=== PATIENT | male | born 1985 | race Caucasian/White ===

== ENCOUNTER 2023-03-31 19:12 | Emergency (ER) | payer BC, SELFPAY ==
[2023-03-31 19:15] VITALS: BP 151/98; PULSE 68; RESP 18; TEMP 36.5; O2SAT 99; BMI 27.3
[2023-03-31] MEDS: dexAMETHasone 10 MG/ML Vial PO.IVFORM (22:28)
--- NOTE | 2023-03-31 23:39 | EDS_ITS ---
HPI HPI - URI History of Present Illness Chief Complaint: Sore Throat Narrative Narrative: 38-year-old male presenting with sore throat which has had for about 16 days. He went to a quick clinic at the pharmacy and was told that he had sinusitis. The patient states he was placed on Augmentin and after his first dose of this he started to get a sore throat which is a little bit worse. He states he went to the urgent care here locally for a second opinion and they told him that he was likely having allergic reaction. They did test him for strep initially and it was negative at that initial minute clinic. He states that he tried to tell them that he just wanted to follow-up with his PCP, however he states that they had another employee come into the room and physically remove him and tell him he had to go to the ER for an allergic reaction. The patient denies any trouble swallowing or breathing. He does not have any rashes. He does not have any abdominal pain. He states that his pain is actually feeling a little bit better now. He states he previously had fevers over the couple of weeks before but is not having anything anymore. He states he is upset with the urgent care because they did not treat him for anything and they kept his co-pay. ROS ROS ED Constitutional Constitutional ED: Denies chills, fever(s) or sweats Eyes Eyes: Denies blurry vision or change in vision ENT ENT ED: Reports sore throat; Denies ear pain Cardiovascular Cardiovascular: Denies chest pain, palpitations or racing heartbeat Respiratory/Chest Respiratory/Chest: Denies cough, dyspnea or sputum Gastrointestinal Gastrointestinal: Denies abdominal pain, constipation, diarrhea, nausea or vomiting Genitourinary Genitourinary ED: Denies dysuria, hematuria or urinary frequency Musculoskeletal Musculoskeletal: Denies arthralgias, myalgias or neck pain Integumentary Denies abscess, Abrasions or rash Neurologic Neurologic: Denies headache(s), paresthesias or weakness Psychiatric Psychiatric: Denies anxiety, depression, suicidal ideation or suicidal thoughts Endocrine Endocrinology: Denies polydipsia or polyuria PFSH PFSH Medical History no medical history Home Medications lidocaine HCl 2 % mucosal solution (Lidocaine Viscous) 10 ml mucous membrane Q8H PRN pain #100 mL 03/31/23 [Rx Last Taken Unknown] Allergy/AdvReac Type Severity Reaction Status Date / Time No Known Allergies Allergy Verified 03/31/23 19:15 Social History Smoking Status: Never smoker EXAM Physical Exam Const Vital Signs: 03/31/23 19:15 Temperature 97.7 F L Temperature Source Temporal Pulse Rate 68 Respiratory Rate 18 Blood Pressure 151/98 H Blood Pressure Mean 115 Pulse Ox 99 Oxygen Delivery Method Room Air Positive well nourished General Appearance ED: NAD; Negative for pallor HEENT Reports moist mucous membranes normocephalic and atraumatic Throat: posterior oropharynx normal; Negative for posterior oropharynx abnormal Eyes PERRL Neck no lymphadenopathy and supple Resp normal respiratory effort and clear to auscultation bilaterally Neuro oriented x3 and CN's II-XII intact bilaterally Sensorium / Orientation: alert Psych mental status grossly normal Skin General Skin Exam: Negative for jaundice or pallor MDM MDM MDM Narrative Medical decision making narrative: Patient presenting with sore throat. On physical exam his oropharynx is patent without stridor. There is minimal posterior oropharyngeal erythema there. There is no exudates. Tonsils not swollen. No stridor or trouble breathing or swallowing. Patient keeps telling me he is upset that the urgent care took his co-pay and did not treat him and I recommended that he follow-up with protocol for their office because I cannot change this. I did state to him that I do not think he has an allergic reaction and his sore throat is likely postviral since he had a fever previously. I did give him a dose of Decadron here. I will give him some viscous lidocaine to gargle and spit. Patient states that he is going to try to establish with a physician and set up a nurse practitioner. I recommended that he go to his insurance to set this up to see who is in network. Return precautions were discussed. Impression: 1. Pharyngitis Discharge Plan Triage Chief Complaint: Sore Throat ED Provider: Aris Doty Dx/Rx/DC Orders Instructions: ED Pharyngitis, Viral Prescriptions: New lidocaine HCl [Lidocaine Viscous] 2 % solution 10 ml mucous membrane Q8H PRN (Reason: pain) Qty: 100 0RF Primary Care Provider: Rosy Ascencio STUDENT ACTIVITIES DIRECTOR Referrals: Rosy Ascencio STUDENT ACTIVITIES DIRECTOR, STUDENT ACTIVITIES DIRECTOR-C [Primary Care Provider] - Disposition Disposition: Home, Self Care Discharge Date/Time: 03/31/23 22:40
== END 2023-03-31 22:40 | disposition home or self-care (01) ==
PROVIDERS: Emergency Provider Student in an Organized Health Care Education/Training Program; PCP Clinical Nurse Specialist; Visit Provider Student in an Organized Health Care Education/Training Program
DX: J02.9 Acute pharyngitis, unspecified (principal); Z03.89 Encounter for observation for other suspected diseases and conditions ruled out
CPT/HCPCS: 99282

== ENCOUNTER 2025-02-26 04:24 | Emergency (ER) | payer BC, SELFPAY ==
[2025-02-26 04:25] VITALS: BP 137/72; PULSE 75; RESP 16; TEMP 36.8; O2SAT 99; BMI 28.1
--- OUTSIDE RECORDS SUMMARY | 2025-02-26 04:38 | XMS RPT_ITS | CCD ---
Author Organization [facility] ion Partnership [facility] Care Team Providers Care Manager Culinary Name Role Phone Melo Christian MD Primary Care Provider JAEL GONZALEZ Attending Unavailable MELO CHRISTIAN Primary Care Unavailable Melo Christian MD Primary Care Provider Sonu MEADOWS, Adrianna Primary Care Unavailable Aris Doty Attending Unavailable Melo Christian MD Primary Care Provider Ascencio BUDGET CONTROLLER.YARN TEXTURING MACHINE OPERATOR, Adrianna Unavailable Niurka BUDGET CONTROLLER.DIPLOMATIC COURIER, Marcelle Unavailable Niurka BUDGET CONTROLLER.DIPLOMATIC COURIER, Marcelle Unavailable Ascencio BUDGET CONTROLLER.YARN TEXTURING MACHINE OPERATOR, Adrianna Unavailable MELO CHRISTIAN Primary Care Unavailable ADRIANNA ASCENCIO Referring Unavailable ADRIANNA ASCENCIO Attending Unavailable MELO CHRISTIAN Primary Care Unavailable RHIANNON MAST Attending Unavailable MELO CHRISTIAN Primary Care Unavailable Allergies Allergy Classification Reported Allergen(s) Allergy Type Date of Onset Reaction(s) Facility (20 sources) Shellfish; Translations: [SHELLFISH DERIVED] Drug Allergy 04-21-2017 Diarrhea, GI Upset, Shortness of Breath [facility] (16 sources) Iodine; Translations: [IODINE] Drug Allergy 12-17-2013 [facility] Work Phone: (15 sources) Shellfish; Translations: [SHELLFISH CONTAINING PRODUCTS] Drug Allergy 04-28-[address] [facility] Work Phone: (2 sources) Amoxicillin Drug Allergy 04-01-[address] [facility] Work Phone: Medications Current Medications Medication Drug Class(es) Dates Sig (Normalized) Sig (Original) [id number] 200 actuat albuterol 0.09 mg/actuat metered dose inhaler (20 sources) beta2-Adrenergic Agonist Start: 01-15-2021 End: 03-15-2024 take 2 puff(s) by inhalation every four hours as needed for wheezing albuterol HFA (PROVENTIL HFA) 90 mcg/actuation inhaler Inhale 2 Puffs as instructed every 4 hours as needed for wheezing/shortnes s of breath. 18 g 2 03/15/2024 Active Comment on above: Inhale 2 Puffs as in structed every 4 hours as needed for wheezing/shortness of breath. amoxicillin 875 mg oral tablet (4 sources) Penicillin-class Antibacterial Start: 03-31-2023 End: 04-10-2023 take 1 tablet by mouth twice daily amoxicillin (AMOXIL) 875 mg tablet Indications: Sore throat Take 1 tablet by mouth twice daily for 10 days. 20 tablet 0 03/31/2023 04/10/2023 Active Start: 12-17-2013 take 1 tablet by joe th twice daily amoxicillin (AMOXIL) 875 MG Tab Indications: Sinusitis take 1 Tab by mouth 2 times daily. 20 Tab 0 12/17/2013 Active Comment on above: Take 1 tablet by joe th twice daily for 10 days. benzonatate 100 mg oral capsule (1 source) Non-narcotic Antitussive Start: 12-18-19 14 benzonatate (TESSALON PERLES) 100 MG Cap Indications: Sinusitis Take 100-200mg by mouth every 6-8 hours for 10 days. 42 Cap 0 12/17/2013 Active fexofenadine hydrochloride 60 mg oral tablet (20 sources) Histamine-1 Receptor Antagonist Start: 03-17-20 20 take 1 tablet by mouth once daily fexofenadine (DORIS ALLERGY) 60 mg tablet Indications: Cough , Environmental allergies Take 1 tablet by mouth once daily. 03/17/2020 Active Comment on above: Take 1 tablet by joe th once daily. Lidocaine (1 source) Antiarrhythmic, Amide Local Anesthetic Start: 03-31-20 23 Lidocaine Hcl (Lidocaine Viscous) 2 % solution Active 10 ML MUCOUS MEM Q8H 100 March 31, 2023 10:03pm Completed/Discontinued Medications Medication Drug Class(es) Dates Sig (Normalized) Sig (Original) bacitracin zinc 0.5 unt/mg topical ointment (1 source) Start: 11-17-2022 End: 11-17-2022 Bacitracin ointment 1 Application ibuprofen 400 mg oral tablet (1 source) Nonsteroidal Anti-inflammatory Drug Start: 11-17-2022 End: 11-17-2022 Ibuprofen (MOTRIN) tablet 800 mg melatonin 10 mg oral tablet (13 sources) take 5 mg by mouth once daily at bedtime melatonin 10 mg tab Take 5 mg by mouth daily at bedtime. 0 Active take 1 tablet by joe th once daily at bedtime melatonin 10 mg tab Take 10 mg by mouth daily at bedtime. 0 Active Comment on above: Take 10 mg by mouth daily at bedtime. Take 5 mg by mouth d aily at bedtime. triamcinolone acetonide 0.055 mg/actuat metered dose nasal spray (2 sources) Corticosteroid Start: End: 022 take 2 spray(s) by inhalation once daily triamcinolone acetonide (NASACORT) 55 mcg nasal inhaler Indications: Cough , Environmental allergies Use 2 Sprays in the nose once daily. 0 03/17/2020 12/28/2021 Discontinued Comment on above: Use 2 Sprays in the nose once daily. Problems Active Problems Problem Classification Problem Date Documented Date Episodic/Chronic Administrative/social admission (1 source) Advice given; Translations: [Other specified counseling] Episodic Allergic reactions (3 sources) Environmental allergy; Translations: [Other allergy status, other than to drugs and biological substances] Onset: 04-04-2023 Episodic Anxiety disorders (1 source) Mixed anxiety and depressive disorder; Translations: [Anxiety disorder, unspecified] Chronic Immunizations and screening for infectious disease (6 sources) Contact with or exposure to other viral diseases; Translations: [Exposure to confirmed case of COVID-19] Episodic Open wounds of extremities (3 sources) Laceration of left little finger; Translations: [Laceration without foreign body of left little finger without damage to nail, initial encounter] Onset: 11-17-2022 Episodic Other skin disorders (1 source) Tongue swelling; Translations: [Localized swelling, mass and lump, head] 03-31-2023 Episodic Other upper respiratory disease (2 sources) Nasal congestion; Translations: [Nasal congestion] Episodic Other upper respiratory infections (3 sources) Sore throat symptom; Translations: [Acute pharyngitis, unspecified] Onset: 01-20-2025 03-31-2023 Episodic Past or Other Problems Problem Classification Problem Date Documented Da te Episodic/Chronic Other connective tissue disease (20 sources) Triggering of digit; Translations: [Trigger finger, unspecified finger] Onset: 08-27-2020 Resolved: 11-06-2023 08-27-2020 Episodic Other screening for suspected conditions (not mental disorders or infectious disease) (13 sources) Patient encounter status; Translations: [Encounter for screening for diabetes mellitus] Onset: 03-12-2024 Episodic Residual codes; unclassified (20 sources) Family history of Weekgov-Bajwe-Hlnyw disease; Translations: [Family history of epilepsy and other diseases of the nervous system] Onset: 02-01-2019 02-01-2019 Episodic Residual codes; unclassified (20 sources) Family history of malignant neoplasm of skin; Translations: [Family history of malignant neoplasm of other organs or systems] Onset: 02-01-2019 02-01-2019 Episodic Screening and history of mental health and substance abuse codes (2 sources) Encounter for screening for depression; Translations: [Encounter for screening examination for other mental health and behavioral disorders] Onset: 03-15-2024 Episodic Results Test Name Value Interpretation Reference Range David stokesjonathan Lashell [facility]20[facility] ([id number]) 1985 M Date Time Provider Department 08/31/24 ADRIANNA ASCENCIO INTMarleneWS During your visit today, we recorded the following information about you: Marlene Acevedo, RN 08/31/2024 12:25 PM Signed Pt phoned to let Adrianna know, he and his are having trouble with [place] insurance - insurance is charging them a co-pay of $40 when they see you. Insurance told patient it's because the word specialist is in your credentials, and insurance tells them they have to pay a specialist co-pay. Reports this ranks you higher than pcp, who they only have to pay a $25 co-pay. Patient talked to billing about this, who told them there is nothing [facility] can do, this is an insurance problem. Pt states they will not be able to schedule with you anymore, because they have to chose the lower co-pay. Patient states they want to see you, but they have to stay on a budget, and go with the lowest cost provider. Reports they filed a 24 hour claim for the appt patient's had with you on 08-24-24 (MR # [id number]) and will let you know the results of that. Adrianna Ascencio, NOEL.YARN TEXTURING MACHINE OPERATOR 08/31/2024 4:29 PM Signed I am a primary care provider, not a specialist so there should be no extra charge. I can route to an school administrator to see if we can do anything but in the meantime I recommend he inform his insurance that I am not a specialist on the primary care provider so the co-pay should be the same as everyone else in primary care. Ann Wyatt LPN 08/31/2024 5:12 PM Signed Patient notified of providers message and verbalized understanding. Patient states that there insurance is through a trust fund ([employer]) and they contact with [employer] to get there PPO benefits. Malachi states that Adrianna would not be considered a specialist that a specialist is a MD or higher but [employer] told them that they are sticking to what they stated which is that since Adrianna's title has the word specialist in it he will have to pay the $40. Patient states that it doesn't sound like much but his child has autism and they are in/out of doctors office quite often. Patient states they really like Adrianna and wants to continue to see her but if its going to be $40 a visit they can't afford to do that. Patient also states that the $40 show on the billing. Patient states he can't believe other haven't had this problem. Encounter routed to administration to see if there is anything that can be done. Allergies As of Date: 08/31/2024 Noted Allergy Reaction SHELLFISH CONTAINING PRODUCTS 04/28/2018 10 - Anaphylaxis IODINE 12/17/2013 7 - Swelling SHELLFISH DERIVED 04/21/2017 6 - Diarrhea 8 - GI Upset 12 - Shortness of Breath Date Reviewed: 03/15/2024 Reviewed by: Adrianna Ascencio APRN.YARN TEXTURING MACHINE OPERATOR - Fully Assessed Reason for Visit: Patient Update [1234] Prescriptions as of 10/15/2024 - albuterol HFA (PROVENTIL HFA) 90 mcg/actuation inhaler Inhale 2 Puffs as instructed every 4 hours as needed for wheezing/shortness of breath. - fexofenadine (DORIS ALLERGY) 60 mg tablet Take 1 tablet by mouth once daily. Problem List As Of Date 08/31/2024 Noted Resolved Family history of Ztdqxhp-Ibekb-Iwvvc disease [*02/01/2019 Family history of skin cancer [Z80.8] 02/01/2019 Trigger finger [M65.30] 08/27/2020 11/06/2023 Encounter Status:Closed by Marlene ACEVEDO on 10/15/24 [facility] 05[facility]18[facility]2024 [facility] SUSAN MAURICE ([id number]) 1985 Date Time Provider Department 05/18/24 MELO CHRISTIAN INTMWS During your visit today, we recorded the following information about you: Zhane Choi LPN 05/18/2024 10:19 AM Signed Patient is currently at pharmacy to get Covid AND flu vaccine. Pharmacy can see that he has had 1 dose of Hepatitis B, 03/25/2022, does he need to start the series over or can he finish. Also, asking what other vaccines he would be due for. Please review AND advise. Marcelle Morales LPN, APRN.DIPLOMATIC COURIER 05/19/2024 1:32 PM Signed Our records do show he only had x1 hep B, he should finish the series. Other vaccines aside from getting the covid and flu vaccines are up to date. May Macdonald LPN 05/19/2024 1:46 PM Signed PATIENT NOTIFIED OF SAME. Allergies As of Date: 05/18/2024 Noted Allergy Reaction SHELLFISH CONTAINING PRODUCTS 04/28/2018 10 - Anaphylaxis IODINE 12/17/2013 7 - Swelling SHELLFISH DERIVED 04/21/2017 6 - Diarrhea 8 - GI Upset 12 - Shortness of Breath Date Reviewed: 03/15/2024 Reviewed by: Adrianna Ascencio APRN.YARN TEXTURING MACHINE OPERATOR - Fully Assessed Reason for Visit: Patient Question [1913] Prescriptions as of 05/19/2024 - albuterol HFA (PROVENTIL HFA) 90 mcg/actuation inhaler Inhale 2 Puffs as instructed every 4 hours as needed for wheezing/shortness of breath. - fexofenadine (DORIS ALLERGY) 60 mg tablet Take 1 tablet by mouth once daily. Problem List As Of Date 05/18/2024 Noted Resolved Family history of Sevbzdb-Gwiuz-Dbxjw disease [*02/01/2019 Family history of skin cancer [Z80.8] 02/01/2019 Trigger finger [M65.30] 08/27/2020 11/06/2023 Encounter Status:Closed by MAY [facility]ALD [facility] [facility] Telephone (INTMWS) SUSAN MAURICE ([id number]) 1985 M Date Time Provider Department 03/17/24 MELO CHRISTIAN INTWS During your visit today, we recorded the following information about you: Kang Huffman LPN 03/17/2024 4:53 PM Signed FYI: pt called in to check and see if next year when for his employee incentive program, can he get a glucose only ran instead of a comprehensive panel. Pt reports his employer in the past paid for this and now this year they are making him pay $30.00. Pt will ask next year to have a glucose only ran. NATALY Bianchi Terri, APRN.YARN TEXTURING MACHINE OPERATOR 03/18/2024 12:49 PM Signed noted, ok Allergies As of Date: 03/17/2024 Noted Allergy Reaction SHELLFISH CONTAINING PRODUCTS 04/28/2018 10 - Anaphylaxis IODINE 12/17/2013 7 - Swelling SHELLFISH DERIVED 04/21/2017 6 - Diarrhea 8 - GI Upset 12 - Shortness of Breath Date Reviewed: 03/15/2024 Reviewed by: Adrianna Ascencio APRN.YARN TEXTURING MACHINE OPERATOR - Fully Assessed Reason for Visit: Question [7930] Prescriptions as of 03/18/2024 - albuterol HFA (PROVENTIL HFA) 90 mcg/actuation inhaler Inhale 2 Puffs as instructed every 4 hours as needed for wheezing/shortness of breath. - fexofenadine (DORIS ALLERGY) 60 mg tablet Take 1 tablet by mouth once daily. Problem List As Of Date 03/17/2024 Noted Resolved Family history of Tjmkber-Ujjmf-Uizyg disease [*02/01/2019 Family history of skin cancer [Z80.8] 02/01/2019 Trigger finger [M65.30] 08/27/2020 11/06/2023 Encounter Status:Closed by KANG HUFFMAN [facility]17/[facility] SUSAN MAURICE ([id number]) 1985 M Date Time Provider Department 03/15/24 10:00 AM ADRIANNA ASCENCIO INTMWS During your visit today, we recorded the following information about you: Pulse Respiration Blood pressure Weight 84/minute 16/minute 122/76 90.3 kg Height 1.784 m Adrianna Ascencio, NOEL.YARN TEXTURING MACHINE OPERATOR 03/15/2024 11:47 AM Signed SUBJECTIVE: Depression Screening Never done Anxiety Screening Never done Hepatitis B Vaccine(2 of 3 - 19+ 3-dose series) due on 04/22/2022 HPI Susan Maurice is a 39 year old male. PMH significant for ACTIVE PROBLEM LIST Family History of Omddxjh-Gliwg-Sagyk Disease Family History of Skin Cancer Presents for routine medical exam today. Brings paperwork to complete. He notes continues to work full-time. Notes son requires much assistance. Notes stress eating, ice cream and fast food. 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 Typically NSAID diet. Non-smoker. Weight is stable. Review of Systems Constitutional: Negative. Respiratory: Negative. Cardiovascular: Negative. Endocrine: Negative. Objective BP 122/76 Pulse 84 Resp 16 Ht 178.4 cm (5' 10.25) Wt 90.3 kg (199 lb 1.2 oz) BMI 28.36 kg/m? Physical Exam Vitals and nursing note reviewed. Constitutional: Appearance: Normal appearance. HENT: Head: Normocephalic and atraumatic. Mouth/Throat: Lips: [place]. Mouth: Mucous membranes are moist. Tonsils: No tonsillar exudate. Eyes: Conjunctiva/sclera: Conjunctivae normal. Neck: Thyroid: No thyromegaly. Vascular: Normal carotid pulses. No JVD. Cardiovascular: Rate and Rhythm: Normal rate and regular rhythm. Pulses: Carotid pulses are 2+ on the right side and 2+ on the left side. Radial pulses are 2+ on the right side and 2+ on the left side. Heart sounds: Normal heart sounds. Pulmonary: Effort: Pulmonary effort is normal. Breath sounds: Normal breath sounds. Abdominal: General: Bowel sounds are normal. Palpations: Abdomen is soft. Musculoskeletal: Right lower leg: No edema. Left lower leg: No edema. Skin: General: Skin is warm and dry. Neurological: General: No focal deficit present. Mental Status: He is alert and oriented to person, place, and time. ALLERGIES Allergen Reactions Shellfish Containin* Anaphylaxis Iodine Swelling Shellfish Derived Diarrhea, GI Upset, Shortness of Breath Medication fexofenadine (DORIS ALLERGY) 60 mg tablet Take 1 tablet by mouth once daily. albuterol HFA (PROVENTIL HFA) 90 mcg/actuation inhaler Inhale 2 Puffs as instructed every 4 hours as needed for wheezing/shortness of breath. PAST MEDICAL HISTORY No date: ADD (attention deficit disorder) Comment: Doing fine with coffee No date: Teeth grinding Comment: Hs mouth guard Social History Tobacco Use Smoking status: Never Smokeless tobacco: Never Substance Use Topics Alcohol use: Not Currently Comment: bottle of wine every few months Drug use: No Latest Ref Rng 03/23/2022 03/27/2023 03/12/2024 WBC 3.70 - 11.00 k/uL 5.99 8.97 RBC 4.20 - 6.00 m/uL 5.31 5.24 Hemoglobin 13.0 - 17.0 g/dL 15.7 15.2 Hematocrit 39.0 - 51.0 % 47.1 46.0 MCV 80.0 - 100.0 fL 88.7 87.8 MCH 26.0 - 34.0 pg 29.6 29.0 MCHC 30.5 - 36.0 g/dL 33.3 33.0 RDW-CV 11.5 - 15.0 % 12.7 12.4 Platelet Count 150 - 400 k/uL 227 294 MPV 9.0 - 12.7 fL 11.1 10.3 Neut% % 56.8 67.1 Abs Neut (ANC) 1.45 - 7.50 k/uL 3.40 6.01 Lymph% % 31.4 23.1 Abs Lymph 1.00 - 4.00 k/uL 1.88 2.07 Stewart% % 9.8 8.7 Abs Stewart <0.87 k/uL 0.59 0.78 Eosin% % 1.5 0.4 Abs Eosin <0.46 k/uL 0.09 0.04 Baso% % 0.3 0.4 Abs Baso <0.11 k/uL <0.03 0.04 Immature Gran % % 0.2 0.3 IMMATURE GRANS (ABS) <0.10 k/uL <0.03 0.03 NRBC /100 WBC 0.0 0.0 Absolute nRBC <0.01 k/uL <0.01 <0.01 DTYPE Auto Auto Protein, Total 6.3 - 8.0 g/dL 7.4 7.5 7.1 Albumin 3.9 - 4.9 g/dL 4.8 4.8 4.7 Calcium 8.5 - 10.2 mg/dL 9.7 9.6 9.6 Bilirubin, Total 0.2 - 1.3 mg/dL 0.7 0.5 0.5 Alkaline Phosphatase 38 - 113 U/L 74 89 86 AST 14 - 40 U/L 23 26 37 ALT 10 - 54 U/L 23 27 53 Glucose 74 - 99 mg/dL 92 80 99 BUN 9 - 24 mg/dL 16 23 24 Creatinine 0.73 - 1.22 mg/dL 0.88 0.86 0.82 Sodium 136 - 144 mmol/L 138 137 139 Potassium 3.7 - 5.1 mmol/L 4.3 4.2 4.0 Chloride 98 - 107 mmol/L 102 101 104 CO2 22 - 30 mmol/L 25 24 23 Anion Gap 8 - 15 mmol/L 11 12 12 eGFR >=60 mL/min/1.73m? 114 114 115 Cholesterol, Total <200 mg/dL 188 199 216 (H) Triglyceride <150 mg/dL 77 72 184 (H) HDL Cholesterol >39 mg/dL 40 42 38 (L) Non HDL Cholesterol <130 mg/dL 148 (H) 157 (H) 178 (H) Fasting Time hrs 12 19.5 14 VLDL Cholesterol <30 mg/dL 15 14 37 (H) TC:HDL Ratio <5.10 4.70 4.74 5.68 (H) LDL Cholesterol <100 mg/dL 133 (H) 143 (H) 141 (H) LDL:HDL Ratio <2.54 3.33 (H) 3.40 (H) 3.71 (H) ASSESSMENT/PLAN: 1. Wellness examination - ICD9: V70.0, ICD10: Z00.00(primary diagn (more content not included)... Normal [facility] Comprehensive metabolic 2000 panelon 03-12-2024 Albumin [Mass/Vol] 4.7 g/dL Normal 3.9-4.9 [facility] Comment on above: Order Comment: Speci men Type: BLOOD SPECIMEN Ordering Facility: [facility] Address: [address] [place] [address] Performed By: #### 2 4331-1, 11662-1 #### [facility] CLIA [id number] [address] [id number] [place] ALP [Catalytic activity/Vol] 86 U/L Normal 38-113 [facility] Comment on above: Order Comment: Speci men Type: BLOOD SPECIMEN Ordering Facility: [facility] Address: [address] [place] [address] Performed By: #### 2 4331-1, #### [facility] CLIA [id number] [address] [place] [address] [place] ALT [Catalytic activity/Vol] 53 U/L Normal 10-54 [facility] Comment on above: Order Comment: Speci men Type: BLOOD SPECIMEN Ordering Facility: [facility] Address: [address] [place] [address] Performed By: #### 2 4331-1, #### [facility] CLIA [id number] [address] [place] [address] [place] Anion gap [Moles/Vol] 12 mmol/L Normal 8-15 [facility] Comment on above: Order Comment: Speci men Type: BLOOD SPECIMEN Ordering Facility: [facility] Address: [address] [place] [address] Performed By: #### 2 4331-1, #### [facility] CLIA [id number] [address] [place] [address] [place] AST [Catalytic activity/Vol] 37 U/L Normal 14-40 [facility] Comment on above: Order Comment: Speci men Type: BLOOD SPECIMEN Ordering Facility: [facility] Address: [address] [place] [address] Performed By: #### 2 4331-1, 80891-0 #### [facility] CLIA [id number] [address] [place], [place] [id number] [place] Bilirubin [Mass/Vol] 0.5 mg/dL Normal 0.2-1.3 [facility] Comment on above: Order Comment: Speci men Type: BLOOD SPECIMEN Ordering Facility: [facility] Address: [address] [place] [address] Performed By: #### 2 4331-1, #### [facility] CLIA [id number] [address] [place] [address] [place] Calcium [Mass/Vol] 9.6 mg/dL Normal 8.5-10.2 [facility] Comment on above: Order Comment: Speci men Type: BLOOD SPECIMEN Ordering Facility: [facility] Address: [address] [place] [address] Performed By: #### 2 4331-1, #### [facility] CLIA [id number] [address] [place] [address] [place] Chloride [Moles/Vol] 104 mmol/L Normal 98-107 [facility] Comment on above: Order Comment: Speci men Type: BLOOD SPECIMEN Ordering Facility: [facility] Address: [address] [place] [address] Performed By: #### 2 4331-1, #### [facility] CLIA [id number] [address] [place] [address] [place] CO2 [Moles/Vol] 23 mmol/L Normal 22-30 [facility] Comment on above: Order Comment: Speci men Type: BLOOD SPECIMEN Ordering Facility: [facility] Address: [address] [place] [address] Performed By: #### 2 4331-1, 35429-1 #### [facility] CLIA [id number] [address] [place] [address] [place] Creatinine [Mass/Vol] 0.82 mg/dL Normal 0.73-1.22 [facility] Comment on above: Order Comment: Speci men Type: BLOOD SPECIMEN Ordering Facility: [facility] Address: [address] [place] [address] Performed By: #### 2 4331-1, 87983-5 #### [facility] CLIA [id number] [address] [place] [address] [place] Creatinine and Glomerular filtration rate.predicted panel (S/P/Bld) 115 mL/min/1.73m??? Normal >=60 [facility] Comment on above: Order Comment: Hebert craig Type: BLOOD SPECIMEN Ordering Facility: [facility] Address: [address] [place] [address] Result Comment: Claudette mated Glomerular Filtration Rate (eGFR) is calculated using the 2020 CKD-EPI creatinine equation. This equation utilizes serum creatinine, sex, and age as parameters. The creatinine assay has traceable calibration to isotope dilution-mass spectrometry. Refer to KDIGO guidelines for clinical interpretation. In patients with unstable renal function, e.g. those with acute kidney injury, the eGFR may not accurately reflect actual GFR. Performed By: #### 2 4331-1, 33171-1 #### [facility] CLIA [id number] [address] [place] [address] [place] Glucose [Mass/Vol] 99 mg/dL Normal 74-99 [facility] Comment on above: Order Comment: Hebert craig Type: BLOOD SPECIMEN Ordering Facility: [facility] Address: [address] [place] [address] Result Comment: The [place] Diabetes [employer] (ADA) provides guidance for cutoff values for fasting glucose and random glucose. The ADA defines fasting as no caloric intake for at least 8 hours. Fasting plasma glucose results between 100 to 125 mg/dL indicate increased risk for diabetes (prediabetes). Fasting plasma glucose results greater than or equal to 126 mg/dL meet the criteria for diagnosis of diabetes. In the absence of unequivocal hyperglycemia, results should be confirmed by repeat testing. In a patient with classic symptoms of hyperglycemia or hyperglycemic crisis, random plasma glucose results greater than or equal to 200 mg/dL meet the criteria for diagnosis of diabetes. Reference: Standards of Medical Care in Diabetes 2016, [place] Diabetes Association. Diabetes Care. 2016.39(Suppl 1). Performed By: #### 2 4331-1, #### [facility] CLIA [id number] [address] [place] [address] [place] Potassium [Moles/Vol] 4.0 mmol/L Normal 3.7-5.1 [facility] Comment on above: Order Comment: Speci men Type: BLOOD SPECIMEN Ordering Facility: [facility] Address: [address] [place] [address] Performed By: #### 2 4331-1, #### [facility] CLIA [id number] [address] [place] [address] [place] Protein [Mass/Vol] 7.1 g/dL Normal 6.3-8.0 [facility] Comment on above: Order Comment: Speci men Type: BLOOD SPECIMEN Ordering Facility: [facility] Address: [address] [place] [address] Performed By: #### 2 4331-, #### [facility] CLIA [id number] [address] [place] [address] [place] Sodium [Moles/Vol] 139 mmol/L Normal 136-144 [facility] Comment on above: Order Comment: Speci men Type: BLOOD SPECIMEN Ordering Facility: [facility] Address: [address] [place] [address] Performed By: #### 2 4331-, #### [facility] CLIA [id number] [address] [place], [place] [id number] [place] Urea nitrogen [Mass/Vol] 24 mg/dL Normal 9-24 [facility] Comment on above: Order Comment: Speci men Type: BLOOD SPECIMEN Ordering Facility: [facility] Address: [address] [place] [address] Performed By: #### 2 4331-1, #### [facility] CLIA [id number] [address] [place], [place] [id number] [place] Lipid 1996 panelon 4 Cholesterol [Mass/Vol] 216 mg/dL High <200 [facility] Comment on above: Order Comment: Speci men Type: BLOOD SPECIMEN Ordering Facility: [facility] Address: [address] [place] [address] Result Comment: <200 mg/dL, Desirable 200-239 mg/dL, Borderline high >239 mg/dL, High Performed By: #### 2 4331-1, 86269-7 #### [facility] CLIA [id number] [address] [place] [address] [place] Cholesterol in HDL [Mass/Vol] 38 mg/dL Low >39 [facility] Comment on above: Order Comment: Hebert men Type: BLOOD SPECIMEN Ordering Facility: [facility] Address: [address] [place] [address] Result Comment: 40-5 9 mg/dL, Acceptable >59 mg/dL, High: Negative risk factor for coronary heart disease <40 mg/dL, Low: Positive risk factor for coronary heart disease Performed By: #### 2 4331-1, 92799-5 #### [facility] CLIA [id number] [address] [place] [address] [place] Cholesterol in LDL [Mass/Vol] 141 mg/dL High <100 [facility] Comment on above: Order Comment: Speci men Type: BLOOD SPECIMEN Ordering Facility: [facility] Address: [address] [place] [address] Result Comment: <100 mg/dL, Optimal 100-129 mg/dL, Near optimal/above optimal 130-159 mg/dL, Borderline high 160-189 mg/dL, High >189 mg/dL, Very high Secondary prevention optimal LDL Cholesterol levels are recommended to be < 70 mg/dL Performed By: #### 2 4331-1, 98307-2 #### [facility] CLIA [id number] [address] [place] [address] [place] Cholesterol in LDL/Cholesterol in HDL [Mass ratio] 3.71 {ratio} High <2.54 [facility] Comment on above: Order Comment: Hebert craig Type: BLOOD SPECIMEN Ordering Facility: [facility] Address: [address] [place] [address] Result Comment: Steve bullock: 1. National Cholesterol Education Program ATP III Guideline At-A-Glance Quick Desk Reference: National Heart, Lung, and Blood [place]. National Institutes of Health. 2001: NIH Publication No. 01-3305. 2. An International Atherosclerosis Society position paper: global recommendations for the management of dyslipidemia: executive summary, Atherosclerosis. 2014: 232(2):410-413. Performed By: #### 2 4331-1, 34701-3 #### [facility] CLIA [id number] [address] [place] [address] [place] Cholesterol in VLDL [Mass/Vol] 37 mg/dL High <30 [facility] Comment on above: Order Comment: Hebert craig Type: BLOOD SPECIMEN Ordering Facility: [facility] Address: [address] [place] [address] Performed By: #### 2 4331-1, 29893-1 #### [facility] CLIA [id number] [address] [place] [address] [place] Cholesterol non HDL [Mass/Vol] 178 mg/dL High <130 [facility] Comment on above: Order Comment: Hebert craig Type: BLOOD SPECIMEN Ordering Facility: [facility] Address: [address] [place] [address] Result Comment: <130 mg/dL, Optimal 130-159 mg/dL, Near optimal/above optimal 160-189 mg/dL, Borderline high 190-219 mg/dL, High >219 mg/dL, Very high Secondary prevention optimal non HDL Cholesterol levels are recommended to be <100 mg/dL Performed By: #### 2 4331-1, 50253-1 #### [facility] CLIA [id number] [address] [place] [address] [place] Cholesterol.total/C holesterol in HDL [Mass ratio] 5.68 {ratio} High <5.10 [facility] Comment on above: Order Comment: Speci men Type: BLOOD SPECIMEN Ordering Facility: [facility] Address: [address] [place] [address] Performed By: #### 2 4331-1, 21929-4 #### [facility] CLIA [id number] [address] [place] [address] [place] FASTING TIME 14 hrs Normal [facility] Comment on above: Order Comment: Speci men Type: BLOOD SPECIMEN Ordering Facility: [facility] Address: [address] [place] [address] Performed By: #### 2 4331-1, 14665-0 #### [facility] CLIA [id number] [address] [place] [address] [place] Triglyceride [Mass/Vol] 184 mg/dL High <150 [facility] Comment on above: Order Comment: Speci men Type: BLOOD SPECIMEN Ordering Facility: [facility] Address: [address] [place] [address] Result Comment: <150 mg/dL, Normal 150-199 mg/dL, Borderline high 200-499 mg/dL, High >499 mg/dL, Very high Performed By: #### 2 4331-1, 91894-7 #### [facility] CLIA [id number] [address] [place] [address] [place] Lashell 03-10-[address] [facility] Telephone (INTWS) SUSAN MAURICE ([id number]) 1985 M Date Time Provider Department 03/10/24 ADRIANNA ASCENCIO INTWS During your visit today, we recorded the following information about you: Angeles Sierra LPN 03/10/2024 10:49 AM Signed Patient has upcoming physical for insurance and there is required lab work they need completed. Asking if a CMP and Lipid pnael can be placed for him to have completed tomorrow. Appointment for physical is 03/15. Please advise. Adrianna Ascencio APRN.YARN TEXTURING MACHINE OPERATOR 03/11/2024 11:34 AM Signed Judson Freeman LPN 03/11/2024 12:14 PM Signed Patient notified of lab orders, verbalizes understanding of instructions. Judson Ellison LPN Allergies As of Date: 03/10/2024 Noted Allergy Reaction SHELLFISH CONTAINING PRODUCTS 04/28/2018 10 - Anaphylaxis IODINE 12/17/2013 7 - Swelling SHELLFISH DERIVED 04/21/2017 6 - Diarrhea 8 - GI Upset 12 - Shortness of Breath Date Reviewed: 03/31/2023 Reviewed by: Adrianna Ascencio APRN.YARN TEXTURING MACHINE OPERATOR - Fully Assessed Primary Visit Diagnosis:Encounter for screening for diabetes mellitus [Z13.1] Other Visit Diagnoses:Screening for lipid disorders [Z13.220] Routine physical examination [Z00.00] Order(s):COMPREHENSIV E METABOLIC PANEL [SQCMP] Order #: [id number] FUTURE LIPID PANEL BASIC [SQLIPB] Order #: [id number] FUTURE Prescriptions as of 03/11/2024 - albuterol HFA (PROVENTIL HFA) 90 mcg/actuation inhaler Inhale 2 Puffs as instructed every 4 hours as needed for wheezing/shortness of breath. - fexofenadine (DORIS ALLERGY) 60 mg tablet Take 1 tablet by mouth once daily. Problem List As Of Date 03/10/2024 Noted Resolved Family history of Dlvdjyb-Jhjro-Lfqnw disease [*02/01/2019 Family history of skin cancer [Z80.8] 02/01/2019 Trigger finger [M65.30] 08/27/2020 11/06/2023 Encounter Status:Closed by JUDSON ELLISON on 03/11/24 Normal [facility] Emergency Department Summary on 04-01-2023 Emergency Department Summary [facility] Medical Records Department [address] [place] [address] [place] [address] Emergency Department Summary 03/31/23 MR#: [id number] Acct: [id number] Name: SUSAN MAURICE Rep #: [id number] : 1985 38 From: Aris Doty DO PCP: JN DavisC Status:DEP ER Location: ED HPI HPI - URI History of Present Illness Chief Complaint: Sore Throat Narrative Narrative: 38-year-old male presenting with sore throat which has had for about 16 days. He went to a quick clinic at the pharmacy and was told that he had sinusitis. The patient states he was placed on Augmentin and after his first dose of this he started to get a sore throat which is a little bit worse. He states he went to the urgent care here locally for a second opinion and they told him that he was likely having allergic reaction. They did test him for strep initially and it was negative at that initial minute clinic. He states that he tried to tell them that he just wanted to follow-up with his PCP, however he states that they had another employee come into the room and physically remove him and tell him he had to go to the ER for an allergic reaction. The patient denies any trouble swallowing or breathing. He does not have any rashes. He does not have any abdominal pain. He states that his pain is actually feeling a little bit better now. He states he previously had fevers over the couple of weeks before but is not having anything anymore. He states he is upset with the urgent care because they did not treat him for anything and they kept his co- pay. ROS ROS ED Constitutional Constitutional ED: Denies chills, fever(s) or sweats Eyes Eyes: Denies blurry vision or change in vision ENT ENT ED: Reports sore throat; Denies ear pain Cardiovascular Cardiovascular: Denies chest pain, palpitations or racing heartbeat Respiratory/Chest Respiratory/Chest: Denies cough, dyspnea or sputum Gastrointestinal Gastrointestinal: Denies abdominal pain, constipation, diarrhea, nausea or vomiting Genitourinary Genitourinary ED: Denies dysuria, hematuria or urinary frequency Musculoskeletal Musculoskeletal: Denies arthralgias, myalgias or neck pain Integumentary Denies abscess, Abrasions or rash Neurologic Neurologic: Denies headache(s), paresthesias or weakness Psychiatric Psychiatric: Denies anxiety, depression, suicidal ideation or suicidal thoughts Endocrine Endocrinology: Denies polydipsia or polyuria PFSH PFSH Medical History no medical history Home Medications lidocaine HCl 2 % mucosal solution (Lidocaine Viscous) 10 ml mucous membrane Q8H PRN pain #100 mL 03/31/23 [Rx Last Taken Unknown] Allergy/AdvReac Type Severity Reaction Status Date / Time No Known Allergies Allergy Verified 03/31/23 19:15 Social History Smoking Status: Never smoker EXAM Physical Exam Const Vital Signs: 03/31/23 19:15 Temperature 97.7 F L Temperature Source Temporal Pulse Rate 68 Respiratory Rate 18 Blood Pressure 151/98 H Blood Pressure Mean 115 Pulse Ox 99 Oxygen Delivery Method Room Air Positive well nourished General Appearance ED: NAD; Negative for pallor HEENT Reports moist mucous membranes normocephalic and atraumatic Throat: posterior oropharynx normal; Negative for posterior oropharynx abnormal Eyes PERRL Neck no lymphadenopathy and supple Resp normal respiratory effort and clear to auscultation bilaterally Neuro oriented x3 and CN's II-XII intact bilaterally Sensorium / Orientation: alert Psych mental status grossly normal Skin General Skin Exam: Negative for jaundice or pallor MDM MDM MDM Narrative Medical decision making narrative: Patient presenting with sore throat. On physical exam his oropharynx is patent without stridor. There is minimal posterior oropharyngeal erythema there. There is no exudates. Tonsils not swollen. No stridor or trouble breathing or swallowing. Patient keeps telling me he is upset that the urgent care took his co-pay and did not treat him and I recommended that he follow-up with protocol for their office because I cannot change this. I did state to him that I do not think he has an allergic reaction and his sore throat is likely postviral since he had a fever previously. I did give him a dose of Decadron here. I will give him some viscous lidocaine to gargle and spit. Patient states that he is going to try to establish with a physician and set up a nurse practitioner. I recommended that he go to his insurance to set this up to see who is in network. Return precautions were discussed. Impression: 1. Pharyngitis Discharge Plan Triage Chief Complaint: Sore Throat ED Provider: Aris Doty Dx/Rx/DC Orders Instructions: ED Pharyngitis, Viral (more content not included)... Normal [facility] Vital Signs Date Time Vital Sign Value Performing Clinician Facility 03-15-2024 10:01-0400 Body height 178.4 cm Adrianna Ascencio BUDGET CONTROLLER.YARN TEXTURING MACHINE OPERATOR Work Phone: [facility] 03-15-2024 10:01-0400 Body mass index (BMI) [Ratio] 28.36 kg/m2 Adrianna Ascencio BUDGET CONTROLLER.YARN TEXTURING MACHINE OPERATOR Work Phone: [facility] 03-15-2024 10:01-0400 Body weight 90.3 kg Adrianna Ascencio BUDGET CONTROLLER.YARN TEXTURING MACHINE OPERATOR Work Phone: [facility] 03-15-2024 10:01-0400 Diastolic blood pressure 76 mm[Hg] Adrianna Ascencio BUDGET CONTROLLER.YARN TEXTURING MACHINE OPERATOR Work Phone: [facility] 03-15-2024 10:01-0400 Heart rate 84 /min Adrianna Ascencio BUDGET CONTROLLER.YARN TEXTURING MACHINE OPERATOR Work Phone: [facility] 03-15-2024 10:01-0400 Respiratory rate 16 /min Adrianna Ascencio BUDGET CONTROLLER.YARN TEXTURING MACHINE OPERATOR Work Phone: [facility] 03-15-2024 10:01-0400 Systolic blood pressure 122 mm[Hg] Adrianna Ascencio BUDGET CONTROLLER.YARN TEXTURING MACHINE OPERATOR Work Phone: [facility] 03-31-2023 19:15-0400 Body height 181.61 cm [facility] 03-31-2023 19:15-0400 Body mass index (BMI) [Ratio] 27.3 kg/m2 [facility] 03-31-2023 19:15-0400 Body temperature 97.7 [degF] [facility] 03-31-2023 19:15-0400 Body weight 90.12 kg [facility] 03-31-2023 19:15-0400 Diastolic blood pressure 98 mm[Hg] [facility] 03-31-2023 19:15-0400 Heart rate 68 /min [facility] 03-31-2023 19:15-0400 Respiratory rate 18 /min [facility] 03-31-2023 19:15-0400 SaO2% (BldA) [Mass fraction] 99 % [facility] 03-31-2023 19:15-0400 Systolic blood pressure 151 mm[Hg] [facility] 03-31-2023 09:04-0400 Body height 179.7 cm Adrianna Ascencio BUDGET CONTROLLER.YARN TEXTURING MACHINE OPERATOR Work Phone: [facility] 03-31-2023 09:04-0400 Body weight 88.91 kg Adrianna Ascencio BUDGET CONTROLLER.YARN TEXTURING MACHINE OPERATOR Work Phone: [facility] 03-31-2023 09:04-0400 Diastolic blood pressure 80 mm[Hg] Adrianna Ascencio BUDGET CONTROLLER.YARN TEXTURING MACHINE OPERATOR Work Phone: [facility] 03-31-2023 09:04-0400 Heart rate 92 /min Adrianna Ascencio BUDGET CONTROLLER.YARN TEXTURING MACHINE OPERATOR Work Phone: [facility] 03-31-2023 09:04-0400 Respiratory rate 16 /min Adrianna Ascencio BUDGET CONTROLLER.YARN TEXTURING MACHINE OPERATOR Work Phone: [facility] 03-31-2023 09:04-0400 SaO2% (BldA) [Mass fraction] 98 % Adrianna Ascencio BUDGET CONTROLLER.YARN TEXTURING MACHINE OPERATOR Work Phone: [facility] 03-31-2023 09:04-0400 Systolic blood pressure 120 mm[Hg] Adrianna Ascencio BUDGET CONTROLLER.YARN TEXTURING MACHINE OPERATOR Work Phone: [facility] 11-17-2022 07:42-0400 Body height 180.3 cm Jael Gonzalez MD Work Phone: [facility] 11-17-2022 07:41-0400 Body temperature 97.7 [degF] Jael Gonzalez MD Work Phone: [email or web address] [facility] 11-17-2022 07:41-0400 Diastolic blood pressure 73 mm[Hg] Jael Gonzalez MD Work Phone: [email or web address] [facility] 11-17-2022 07:41-0400 Heart rate 75 /min Jael Gonzalez MD Work Phone: [email or web address] [facility] 11-17-2022 07:41-0400 Respiratory rate 18 /min Jael Gonzalez MD Work Phone: [facility] 11-17-2022 07:41-0400 SaO2% (BldA) [Mass fraction] 98 % Jael Gonzalez MD Work Phone: [facility] 11-17-2022 07:41-0400 Systolic blood pressure 125 mm[Hg] Jael Gonzalez MD Work Phone: [facility] 03-25-2022 07:51-0400 Body height 179.7 cm Adrianna Ascencio BUDGET CONTROLLER.YARN TEXTURING MACHINE OPERATOR Work Phone: [facility] 03-25-2022 07:51-0400 Body weight 84.82 kg Adrianna Ascencio BUDGET CONTROLLER.YARN TEXTURING MACHINE OPERATOR Work Phone: [facility] 03-25-2022 07:51-0400 Diastolic blood pressure 80 mm[Hg] Adrianna Ascencio BUDGET CONTROLLER.YARN TEXTURING MACHINE OPERATOR Work Phone: [facility] 03-25-2022 07:51-0400 Heart rate 72 /min Adrianna Ascencio BUDGET CONTROLLER.YARN TEXTURING MACHINE OPERATOR Work Phone: [facility] 03-25-2022 07:51-0400 Respiratory rate 16 /min Adrianna Ascencio BUDGET CONTROLLER.YARN TEXTURING MACHINE OPERATOR Work Phone: [facility] 03-25-2022 07:51-0400 Systolic blood pressure 120 mm[Hg] Adrianna Ascencio BUDGET CONTROLLER.YARN TEXTURING MACHINE OPERATOR Work Phone: [facility] 12-28-2021 16:28-0400 Body temperature 97.81 [degF] Medhat Smith MD Work Phone: [facility] 12-28-2021 16:28-0400 Body weight 87.64 kg Medhat Smith MD Work Phone: [facility] 12-28-2021 16:28-0400 Diastolic blood pressure 82 mm[Hg] Medhat Smith MD Work Phone: [facility] 12-28-2021 16:28-0400 Heart rate 77 /min Medhat Smith MD Work Phone: [facility] 12-28-2021 16:28-0400 Respiratory rate 20 /min Medhat Smith MD Work Phone: [facility] 12-28-2021 16:28-0400 SaO2% (BldA) [Mass fraction] 98 % Medhat Smith MD Work Phone: [facility] 12-28-2021 16:28-0400 Systolic blood pressure 128 mm[Hg] Medhat Smith MD Work Phone: [facility] Encounters Encounter Date Encounter Type Care Provider Facility Start: 01-20-2025 End: 01-20-2025 Telemedicine consultation with patient Rhiannon Mast BUDGET CONTROLLER.DIPLOMATIC COURIER Work Phone: [facility] Comment on above: Acute non-recurrent pansinusitis (Primary Dx) Start: 01-20-2025 End: 01-20-2025 ambulatory RHIANNON MAST Facility:[facility] Start: 08-31-2024 End: 10-15-2024 Telephone encounter Adrianna Ascencio APRN.YARN TEXTURING MACHINE OPERATOR Work Phone: [facility] Comment on above: Patient Update Start: 05-18-2024 End: 05-19-2024 Telephone encounter Melo Christian MD Work Phone: [facility] Comment on above: Patient Question Start: 03-17-2024 Telephone encounter Melo morales MD Work Phone: [facility] Comment on above: Question Start: 03-15-2024 End: 03-15-2024 Patient encounter procedure Adrianna Ascencio BUDGET CONTROLLER.YARN TEXTURING MACHINE OPERATOR Work Phone: [facility] Comment on above: Wellness examination (Primary Dx); Screening for depression; Encounter for screening examination for other mental health and behavioral disorders Start: 03-15-2024 End: 03-15-2024 Patient encounter status Adrianna Ascencio BUDGET CONTROLLER.YARN TEXTURING MACHINE OPERATOR Work Phone: [facility] Start: 03-15-2024 End: 03-15-2024 ambulatory ADRIANNA ASCENCIO Facility:[facility] Start: 03-15-2024 Encounter for genera l adult medical examination without abnormal findings ADRIANNA ASCENCIO [facility] Start: 03-12-2024 End: 03-12-2024 ambulatory MELO CHRISTIAN Facility:[facility] Start: 03-12-2024 Physical examination MELO Islas [facility] Start: 03-10-2024 Physical examination Adrianna alston BUDGET CONTROLLER.YARN TEXTURING MACHINE OPERATOR Work Phone: [facility] Start: 03-10-2024 Telephone encounter Adrianna leon BUDGET CONTROLLER.YARN TEXTURING MACHINE OPERATOR Work Phone: [facility] Start: 12-02-2023 Telephone encounter Melo morales MD Work Phone: [address] [place] [address] Start: 11-24-2023 Telephone encounter Melo omrales MD Work Phone: [facility] Comment on above: Patient Question Start: 11-11-2023 Telephone encounter Melo morales MD Work Phone: [facility] Comment on above: Patient Question (re garding dairy/lactose intolerance and urinary frequency. ) Start: 04-01-2023 ambulatory Adrianna Ascencio BUDGET CONTROLLER.YARN TEXTURING MACHINE OPERATOR Work Phone: [facility] Comment on above: Yvonne Sheridan Start: 03-31-2023 End: 04-01-2023 Emergency department patient visit Adrianna Sonu MEADOWS Facility:[facility] Start: 03-31-2023 End: 03-31-2023 Emergency department patient visit [facility] Work Phone: Start: 03-31-2023 ambulatory Melo arrington MD Work Phone: [facility] Comment on above: worsening symptoms Start: 03-31-2023 Telephone encounter Adrianna leon BUDGET CONTROLLER.YARN TEXTURING MACHINE OPERATOR Work Phone: [facility] Comment on above: Patient Update; Medi cation Problem Start: 03-31-2023 End: 03-31-2023 Patient encounter procedure Adrianna Ascencio APRN.YARN TEXTURING MACHINE OPERATOR Work Phone: [facility] Comment on above: Routine medical exam (Primary Dx); Encounter for immunization; Encounter for screening for diabetes mellitus; Screening, lipid; Environmental allergies; Sore throat Tongue swelling (Mary konrad Dx) Start: 03-31-2023 End: 03-31-2023 Patient encounter status Adrianna Ascencio APRN.YARN TEXTURING MACHINE OPERATOR Work Phone: [facility] Work Phone: Start: 03-28-2023 ambulatory Adrianna Ascencio APRN.YARN TEXTURING MACHINE OPERATOR Work Phone: [facility] Comment on above: Blood screening Start: 11-17-2022 End: 11-17-2022 Emergency department patient visit JAEL GONZALEZ [facility] Start: 11-17-2022 End: 11-17-2022 Emergency department patient visit Jael Gonzalez MD Work Phone: [facility] Start: 08-19-2022 Telephone encounter Melo morales MD Work Phone: [facility] Comment on above: Orders Start: 05-07-2022 End: 05-07-2022 Patient encounter procedure Nurse [facility] Comment on above: Encounter for immuni zation (Primary Dx) Start: 03-25-2022 End: 03-25-2022 Patient encounter procedure Adrianna Ascencio APRN.YARN TEXTURING MACHINE OPERATOR Work Phone: [facility] [place] Comment on above: Routine medical exam (Primary Dx); Encounter for immunization; Anxiety and depression; Environmental allergies; Encounter for screening for diabetes mellitus; Screening for lipid disorders Start: 03-25-2022 End: 03-25-2022 Patient encounter status Adrianna Ascencio APRN.YARN TEXTURING MACHINE OPERATOR Work Phone: [facility] [place] Start: 12-31-2021 End: 12-31-2021 ambulatory Lizz Bowie APRN.CNP Work Phone: Telemedicine Comment on above: Exposure to COVID-19 virus (Primary Dx) Start: 12-31-2021 End: 12-31-2021 Telemedicine consultation with patient Lizz Bowie APRN.DIPLOMATIC COURIER Work Phone: [facility] Start: 12-29-2021 End: 12-29-2021 ambulatory Julian Hernandez APRN.DIPLOMATIC COURIER Work Phone: Telemedicine Comment on above: Nasal congestion (Pr imary Dx); Exposure to confirmed case of COVID-19; Advice given about COVID-19 virus infection Start: 12-29-2021 End: 12-29-2021 Telemedicine consultation with patient Julian Hernandez APRN.DIPLOMATIC COURIER Work Phone: [facility] Start: 12-28-2021 End: 12-28-2021 Patient encounter procedure Medhat Smith MD Work Phone: [facility] Comment on above: Exposure to confirme d case of COVID-19 (Primary Dx); Nasal congestion Start: 12-28-2021 Telephone encounter Melo morales MD Work Phone: Internal [facility] [place] Comment on above: Patient Update Procedures Date Procedure Procedure Detail Performing Clinician Start: 03-15-2024 Adult depression scr eening assessment Adrianna Ascencio APRN.YARN TEXTURING MACHINE OPERATOR Work Phone: Start: 03-12-2024 Lipid 1996 panel - S ever or Plasma Adrianna Ascencio APRN.YARN TEXTURING MACHINE OPERATOR Work Phone: Start: 03-27-2023 Lipid 1996 panel - S ever or Plasma Melo Christian MD Work Phone: Start: 05-07-2022 INFLUENZA VACCINE QUADRIVALENT 6 MO - 64 YRS IM Susan More MD Work Phone: Start: 05-07-2022 [employer]-Oximity[employer] COVI D-19 BIVALENT BOOSTER VACCINE, AGE 12+ YR Susan More MD Work Phone: Start: 03-25-2022 Adult depression scr eening assessment Adrianna Ascencio APRN.YARN TEXTURING MACHINE OPERATOR Work Phone: Start: 03-16-2020 Adult depression scr eening assessment Melo Christian MD Work Phone: Plan of Treatment Date Care Activity Detail Author Start: 03-12-2029 Lipid panel [facility] Start: 03-27-2028 Lipid panel Lipid Screening [facility] Start: 03-27-2028 [address] SCREEN [facility] Start: 03-23-2027 L[address]ID SCREEN L[address]ID SCREEN [facility] Start: 03-20-2026 End: 03-20-2026 Patient encounter procedure 03/20/2026 3:40 PM EDT Office Visit [facility] [address] [place] [address] Melo Christian MD [address] [facility] [place] [address] physical for employee health plan [facility] Comment on above: physical for employe e health plan Start: 03-12-2026 Tetanus vaccination [facility] Start: 03-12-[address] [facility] Start: 01-10-2026 [address]EN [address]ID SCREEN [facility] Start: 04-04-2025 End: 04-04-2025 Patient encounter procedure 04/04/2025 8:40 AM EDT Office Visit [facility] [address] [place] [address] Melo Christian MD [address] [facility] [place] [address] Yearly exam [facility] [place] Comment on above: Yearly exam Start: 03-15-2025 Anxiety Screening Anxiety Screening [facility] Start: 03-15-2025 Depression Screening Depression Scre ening [facility] Start: 04-11-2024 Influenza vaccination Influenza Vacc ine (#1) [facility] Start: 03-15-2024 End: 03-15-2024 Patient encounter procedure 03/15/2024 10:00 AM EDT Office Visit [facility] [address] [place] [address] Adrianna Ascencio APRN.YARN TEXTURING MACHINE OPERATOR [address] [place] [address] yearly exam [facility] Comment on above: yearly exam Start: 03-11-2024 End: 06-10-2024 Comprehensive metabolic 2000 panel - Serum or Plasma COMPREHENSIVE METABOLIC PANEL Lab Routine Encounter for screening for diabetes mellitus Routine physical examination Expected: 03/11/2024, Expires: 06/10/2024 [facility] Work Phone: Comment on above: Expected: 03/11/2024 , Expires: 06/10/2024 Start: 03-11-2024 End: 06-10-2024 Lipid 1996 panel - Serum or Plasma LIPID PANEL BASIC Lab Routine Screening for lipid disorders Routine physical examination Expected: 03/11/2024, Expires: 06/10/2024 [facility] Comment on above: Expected: 03/11/2024 , Expires: 06/10/2024 Start: 08-11-2023 Behavioral Health Screening Behavioral Health Screening [facility] Start: 08-11-2023 Depression Assessment Depression Ass orthoindy hospitalment [facility] Start: 04-11-2023 Influenza vaccination INFLUENZA (#1) [facility] Start: 03-25-2023 Adult depression screening assessment DEPRESSION SCREENING [facility] Start: 02-20-2023 End: 04-22-2023 CBC W Auto Differential panel - Blood CBC + DIFF Lab Routine Encounter for therapeutic drug monitoring Expected: 02/20/2023, Expires: 04/22/2023 [facility] Work Phone: Comment on above: Expected: 02/20/2023 , Expires: 04/22/2023 Start: 02-20-2023 End: 04-22-2023 Comprehensive metabolic 2000 panel - Serum or Plasma COMP METABOLIC PANEL Lab Routine Encounter for screening for diabetes mellitus Encounter for therapeutic drug monitoring Expected: 02/20/2023, Expires: 04/22/2023 [facility] Work Phone: Comment on above: Expected: 02/20/2023 , Expires: 04/22/2023 Start: 02-20-2023 End: 04-22-2023 Lipid 1996 panel - Serum or Plasma LIPID PANEL BASIC Lab Routine Screening, lipid Expected: 02/20/2023, Expires: 04/22/2023 [facility] Work Phone: Comment on above: Expected: 02/20/2023 , Expires: 04/22/2023 Start: 08-11-2022 DEPRESSION ASSESSMENT DEPRESSION ASS ESSMENT [facility] Start: 05-28-2022 COVID-19 VACCINE (2 - Pfizer series) COVID-19 VACCINE (2 - Pfizer series) [facility] Start: 04-22-2022 HEPATITIS B (2 of 3 - 3-dose series) [facility] Start: 04-22-2022 Hepatitis B Vaccine (2 of 3 - 19+ 3-dose series) Hepatitis B Vaccine (2 of 3 - 19+ 3-dose series) [facility] Start: 04-11-2022 Influenza vaccination [facility] Start: 12-28-2021 End: 01-07-2022 SARS-CoV-2 (COVID-19) RNA [Presence] in Respiratory specimen by LEDA with probe detection ASYMPTOMATIC ELECTIVE COVID-19 Microbiology Routine Exposure to confirmed case of COVID-19 Nasal congestion Expected: 12/28/2021, Expires: 01/07/2022 [facility] Work Phone: Comment on above: Expected: 12/28/2021 , Expires: 01/07/2022 Start: 08-11-2021 DEPRESSION ASSESSMENT DEPRESSION ASS ESSMENT [facility] Start: 03-16-2021 Adult depression screening assessment DEPRESSION SCREENING [facility] Start: 2004 Anxiety Screening Anxiety Screening [facility] Start: 2004 Depression Screening Depression Scre ening [facility] Start: 2001 HIV screening HIV SCREENING DISCUSSION [facility] Start: 1986 Hepatitis C screening HEPATITI S C VIRUS SCREENING [facility] Hepb vaccine adult 3 dose schedule for im use HEP B VACCINE, 3-DOSE, AGE 20+ YR (ENGERIX-B, RECOMBIVAX HB) Immunization/Injection Routine Encounter for immunization 1 Occurrences starting 03/31/2023 [facility] Work Phone: Comment on above: 1 Occurrences starti ng 03/31/2023 Patient Education ED Pharyngitis, Viral [facility] Work Phone: Patient referral [facility] Work Phone: [facility] Immunizations Immunization Date Immunization Notes Care Provider Fa cili 05-18-2024 influenza, injectabl e, madin peewee canine kidney, preservative free Melo Christian MD Work Phone: [facility] 06-24-2023 Influenza, injectabl e, Madin [place] Canine Kidney, preservative free, quadrivalent Melo Christian MD Work Phone: [facility] Work Phone: 06-24-2023 influenza, seasonal, injectable Melo Christian MD Work Phone: [facility] 06-24-2023 influenza virus vaccine, unspecified formulation Adrianna Sonu BUDGET CONTROLLER.YARN TEXTURING MACHINE OPERATOR Work Phone: [facility] 05-07-2022 COVID-19 booster vaccine, age 12+ yr, bivalent (PFIZER-BIONTAnaplan) Nurse [facility] 05-07-2022 influenza, injectabl e, quadrivalent, contains preservative Nurse [facility] 03-25-2022 hepatitis B vaccine, adult dosage Adrianna Ascencio BUDGET CONTROLLER.YARN TEXTURING MACHINE OPERATOR Work Phone: [facility] Work Phone: 03-25-2022 hepatitis B vaccine, unspecified formulation Adrianna Ascencio BUDGET CONTROLLER.YARN TEXTURING MACHINE OPERATOR Work Phone: [facility] 06-18-2021 COVID-19 vaccine, fu ll dose (MODERNA) Melo Christian MD Work Phone: [facility] Work Phone: 11-28-2020 COVID-19 vaccine, fu ll dose (MODERNA) Melo Christian MD Work Phone: [facility] 11-01-2020 COVID-19 vaccine, fu ll dose (MODERNA) Melo Christian MD Work Phone: [facility] 04-08-2020 influenza, injectabl e, quadrivalent, preservative free Melo Christian MD Work Phone: [facility] 05-03-2019 influenza, injectabl e, quadrivalent, contains preservative Melo Christian MD Work Phone: [facility] 04-28-2018 influenza, injectabl e, quadrivalent, preservative free Melo Christian MD Work Phone: [facility] 03-12-2016 tetanus toxoid, redu charlene diphtheria toxoid, and acellular pertussis vaccine, adsorbed Melo Christian MD Work Phone: [facility] 03-11-2016 tetanus and diphther ia toxoids, not adsorbed, for adult use Melo Christian MD Work Phone: [facility] Work Phone: Payers Date Payer Category Payer Self-pay [id number] 2022 Unknown [id number] [facility] [id number] 2019 Unknown [id number] 2019 Unknown [id number] 2019 Unknown [id number] 1986 Unknown [id number] Unknown [id number] Social History Date Type Detail Facility Start: 04-21-2017 End: 03-25-2022 Tobacco smoking status NHIS Never smoked tobacco [facility] Start: 04-21-2017 End: 03-25-2022 Tobacco use and exposure Smokeless tobacco non-user [facility] Start: 12-28-2021 End: 01-20-2025 Alcohol intake Ex-drinker (finding) [facility] Start: 03-17-2020 End: 03-25-2022 History SDOH Alcohol Frequency 1 [facility] Start: 03-17-2020 History SDOH Alcohol Std Drinks 98 [facility] Start: 04-24-2018 History SDOH Alcohol Comment bottle of wine every few months [facility] Start: 03-17-2020 History SDOH Social Connections Phone 5 [facility] Start: 03-17-2020 End: 03-25-2022 History SDOH Social Connections Get Together 2 [facility] Start: 03-17-2020 End: 03-25-2022 History SDOH Social Connections Living 3 [facility] Start: 03-17-2020 End: 03-25-2022 History SDOH Stress 4 [facility] Start: 03-16-[address] [facility] Start: 1985 Sex Assigned At Not on file [facility] Start: 12-03-2021 End: 12-28-2021 Exposure to SARS-CoV-2 (event) Unable to assess [facility] Work Phone: Start: 03-25-2022 History SDOH Alcohol Std Drinks 0 [facility] Start: 03-15-2022 End: 11-17-2022 Exposure to SARS-CoV-2 (event) Not sure [facility] Work Phone: Start: 11-17-2022 Alcohol intake Not Asked [facility] Start: 03-25-2022 End: 03-31-2023 [facility] Start: 03-25-2022 End: 03-31-2023 Social connection and isolation panel [facility] Do you belong to any clubs or organizations such as mosque groups, unions, fraternal or athletic groups, or school groups? No [facility] Are you now , , , , never or living with a partner? [facility] How often to you hav e a drink containing alcohol? Never [facility] How many standard dr inks containing alcohol do you have on a typical day? Patient does not drink [facility] How hard is it for y ou to pay for the very basics like food, housing, medical care, and heating Not very hard [facility] Do you feel stress - tense, restless, nervous, or anxious, or unable to sleep at night because your mind is troubled all the time - these days [OSQ] Only a little [facility] (I/We) worried efe er (my/our) food would run out before (I/we) got money to buy more. Never true [facility] Start: 03-31-2023 [facility] Start: 1985 Sex Assigned At Male [facility] Clinical Notes 08-27-2020 to 01-20-2025 Patient InstructionsRhiannon Mast APRN.DIPLOMATIC COURIER - 01/20/2025 2:51 PM EDTTelephone Encounter - Ann Wyatt LPN - 08/31/2024 5:04 PM Adrianna Fry APRN.YARN TEXTURING MACHINE OPERATOR - 03/15/2024 10:00 AM EDT Note Date & Type Note Facility 01-20-2025 Instructions Rhiannon Mast APRN.DIPLOMATIC COURIER - 01/20/2025 4:18 PM EDT - Use Flonase nasal spray: 2 sprays in each nostril at bedtime until your sinus symptoms resolve. - Take Zyrtec 1 tablet at bedtime each night. - Start plain guaifenesin extended-release (Mucinex) 1,200 mg twice daily (every 12 hours) to help thin and clear mucus. - If you d like extra decongestion, you can use a separate pseudoephedrine (Sudafed) product in the morning as needed--do not use combination products like Mucinex D. - Consider adding azelastine nasal spray in the morning, using it together with your evening Flonase, if you feel it helps. - For chills and sinus pain, alternate acetaminophen (Tylenol) and ibuprofen as needed. Do not take additional aspirin or caffeine. - Watch your symptoms over the next 10 days. If you still have severe sinus pressure, pain, or congestion beyond 10 days after your symptoms began, please schedule a follow-up visit for reassessment. documented in this encounter [facility] 01-20-2025 Note HNO ID: [id number] Author: RHIANNON MAST APRN.[place] Service: ? Author Type: Nurse Practitioner Type: Progress Notes Filed: 01/20/2025 16:18 Note Text: Telemedicine Visit - Distance Health Virtual Visit Note Patient seen on [facility] Online through Zoom Video Visit Location of patient: [place] Person(s) present on virtual visit: Patient Subjective The patient is a 39-year-old male presenting with sinus pressure and pain. Sinus Pressure and Pain: - Onset 5 days ago with fever, chills, and sinus pressure. - Initially had rhinorrhea, which has since resolved. - Currently experiencing persistent sinus pressure, particularly in the frontal sinuses. - Using Excedrin Migraine for 4 days, which alleviates pain but not pressure. - Tried ibuprofen initially but switched to Excedrin for longer-lasting relief. - Reports mild pain upon self-palpation of frontal and maxillary sinuses. - Denies cough, sore throat, ear pain, or pressure. - Experiencing chills, especially at night. - Mild diarrhea, managed with Pepto-Bismol. - Denies dyspnea, chest pain, or anosmia. - No known exposure to strep, flu, or COVID-19; no tests taken. - Spouse and son exhibiting similar symptoms. - Currently taking Zyrtec and Flonase. Constitutional: (+) fever, (+) chills Ears/Nose/Mouth/Throat: (+) nasal congestion, (+) sinus pressure, (+) sinus pain, (-) sore throat, (-) ear pain Cardiovascular: (-) chest pain, (-) palpitations Respiratory: (-) cough, (-) shortness of breath Gastrointestinal: (+) diarrhea, (+) flatulence Psychiatric: (-) anxiety Hematologic/Lymphatic: (+) cervical lymph node tenderness Objective There were no vitals taken for this visit. General: No acute distress. HEENT: Mild pain to self-palpation of frontal and maxillary sinuses, more severe in frontal sinuses; minor pain with self-palpation of cervical lymph nodes; no pain with self-pulling of ears. Assessment AND Plan 1. Acute non-recurrent pansinusitis (J01.40) - Symptoms began 5 days ago with fever, chills, and sinus pressure; no sore throat or cough reported. Mild diarrhea managed with Pepto-Bismol. - Mild tenderness to self-palpation of frontal and maxillary sinuses, more severe in the frontal sinuses. - Educated on viral etiology of sinus infections, noting that 98% are viral. Bacterial infection considered if symptoms worsen past 10 days. - Continue Flonase 2 sprays before bedtime and Zyrtec 24-hour at bedtime. - Initiate guaifenesin 1200 mg extended-release BID. - Optional use of Sudafed as needed in the morning. - Consider azelastine nasal spray in the morning in addition to Flonase in the evening. - Rotate between Tylenol and ibuprofen for chills and sinus pain. - Follow-up if symptoms worsen or persist beyond 10 days. Recording using [employer] software for draft documentation of the visit was discussed with the patient/authorized merchandising representative; all questions welcomed and answered. Patient/authorized merchandising representative agreed to proceed History and Record Review Systemic symptoms present included: Chills Additional Tests or Interventions The following medication(s) were considered but not ordered: atb Disposition The patient was discharged. OTC Medications were advised: Please see AVS instructions and Assessment and Plan for OTC medications recommended - All questions answered. Patient and/or caregiver verbalized understanding and comfortable with plan. I have communicated my name and active licensure. The patient's identity and physical location were verified at the time of this visit. Either the patient or their legal merchandising representative has been informed of the risks and benefits of -- and alternatives to -- treatment through a remote evaluation and consents to proceed with the evaluation remotely. Rhiannon Mast APRN.[facility] 01-20-2025 History of Presen t illness Narrative Telemedicine Visit - Distance Health Virtual Visit Note Patient seen on [email or web address] Online through Zoom Video Visit Location of patient: [place] Person(s) present on virtual visit: Patient Subjective The patient is a 39-year-old male presenting with sinus pressure and pain. Sinus Pressure and Pain: - Onset 5 days ago with fever, chills, and sinus pressure. - Initially had rhinorrhea, which has since resolved. - Currently experiencing persistent sinus pressure, particularly in the frontal sinuses. - Using Excedrin Migraine for 4 days, which alleviates pain but not pressure. - Tried ibuprofen initially but switched to Excedrin for longer-lasting relief. - Reports mild pain upon self-palpation of frontal and maxillary sinuses. - Denies cough, sore throat, ear pain, or pressure. - Experiencing chills, especially at night. - Mild diarrhea, managed with Pepto-Bismol. - Denies dyspnea, chest pain, or anosmia. - No known exposure to strep, flu, or COVID-19; no tests taken. - Spouse and son exhibiting similar symptoms. - Currently taking Zyrtec and Flonase. Constitutional: (+) fever, (+) chills Ears/Nose/Mouth/Throat: (+) nasal congestion, (+) sinus pressure, (+) sinus pain, (-) sore throat, (-) ear pain Cardiovascular: (-) chest pain, (-) palpitations Respiratory: (-) cough, (-) shortness of breath Gastrointestinal: (+) diarrhea, (+) flatulence Psychiatric: (-) anxiety Hematologic/Lymphatic: (+) cervical lymph node tenderness Objective There were no vitals taken for this visit. General: No acute distress. HEENT: Mild pain to self-palpation of frontal and maxillary sinuses, more severe in frontal sinuses; minor pain with self-palpation of cervical lymph nodes; no pain with self-pulling of ears. Assessment & Plan 1. Acute non-recurrent pansinusitis (J01.40) - Symptoms began 5 days ago with fever, chills, and sinus pressure; no sore throat or cough reported. Mild diarrhea managed with Pepto-Bismol. - Mild tenderness to self-palpation of frontal and maxillary sinuses, more severe in the frontal sinuses. - Educated on viral etiology of sinus infections, noting that 98% are viral. Bacterial infection considered if symptoms worsen past 10 days. - Continue Flonase 2 sprays before bedtime and Zyrtec 24-hour at bedtime. - Initiate guaifenesin 1200 mg extended-release BID. - Optional use of Sudafed as needed in the morning. - Consider azelastine nasal spray in the morning in addition to Flonase in the evening. - Rotate between Tylenol and ibuprofen for chills and sinus pain. - Follow-up if symptoms worsen or persist beyond 10 days. Recording using [employer] software for draft documentation of the visit was discussed with the patient/authorized merchandising representative; all questions welcomed and answered. Patient/authorized merchandising representative agreed to proceed History and Record Review Systemic symptoms present included: Chills Additional Tests or Interventions The following medication(s) were considered but not ordered: atb Disposition The patient was discharged. OTC Medications were advised: Please see AVS instructions and Assessment and Plan for OTC medications recommended - All questions answered. Patient and/or caregiver verbalized understanding and comfortable with plan. I have communicated my name and active licensure. The patient's identity and physical location were verified at the time of this visit. Either the patient or their legal merchandising representative has been informed of the risks and benefits of -- and alternatives to -- treatment through a remote evaluation and consents to proceed with the evaluation remotely. Rhiannon Mast APRN.[place] documented in this encounter [facility] 08-31-2024 Telephone encounter Note Patient notified of providers message and verbalized understanding. Patient states that there insurance is through a trust fund ([employer]) and they contact with [employer] to get there PPO benefits. Malachi states that Adrianna would not be considered a specialist that a specialist is a MD or higher but [employer] told them that they are sticking to what they stated which is that since Adrianna's title has the word specialist in it he will have to pay the $40. Patient states that it doesn't sound like much but his child has autism and they are in/out of doctors office quite often. Patient states they really like Adrianna and wants to continue to see her but if its going to be $40 a visit they can't afford to do that. Patient also states that the $40 show on the billing. Patient states he can't believe other haven't had this problem. Encounter routed to administration to see if there is anything that can be done. [facility] 08-31-2024 Miscellaneous Notes Patient notified of providers message and verbalized understanding. Patient states that there insurance is through a trust fund ([employer]) and they contact with [employer] to get there PPO benefits. Malachi states that Adrianna would not be considered a specialist that a specialist is a MD or higher but [employer] told them that they are sticking to what they stated which is that since Adrianna's title has the word specialist in it he will have to pay the $40. Patient states that it doesn't sound like much but his child has autism and they are in/out of doctors office quite often. Patient states they really like Adrianna and wants to continue to see her but if its going to be $40 a visit they can't afford to do that. Patient also states that the $40 show on the billing. Patient states he can't believe other haven't had this problem. Encounter routed to administration to see if there is anything that can be done. I am a primary care provider, not a specialist so there should be no extra charge. I can route to an school administrator to see if we can do anything but in the meantime I recommend he inform his insurance that I am not a specialist on the primary care provider so the co-pay should be the same as everyone else in primary care. Pt phoned to let Adrianna know, he and his are having trouble with [place] insurance - insurance is charging them a co-pay of $40 when they see you. Insurance told patient it's because the word specialist is in your credentials, and insurance tells them they have to pay a specialist co-pay. Reports this ranks you higher than pcp, who they only have to pay a $25 co-pay. Patient talked to billing about this, who told them there is nothing [facility] can do, this is an insurance problem. Pt states they will not be able to schedule with you anymore, because they have to chose the lower co-pay. Patient states they want to see you, but they have to stay on a budget, and go with the lowest cost provider. Reports they filed a 24 hour claim for the appt patient's had with you on 08-24-24 (MR # [id number]) and will let you know the results of that. documented in this encounter [facility] 08-31-2024 Telephone encounter Note I am a primary care provider, not a specialist so there should be no extra charge. I can route to an school administrator to see if we can do anything but in the meantime I recommend he inform his insurance that I am not a specialist on the primary care provider so the co-pay should be the same as everyone else in primary care. [facility] 08-31-2024 Telephone encounter Note Pt phoned to let Adrianna know, he and his are having trouble with [place] - insurance is charging them a co-pay of $40 when they see you. Insurance told patient it's because the word specialist is in your credentials, and insurance tells them they have to pay a specialist co-pay. Reports this ranks you higher than pcp, who they only have to pay a $25 co-pay. Patient talked to billing about this, who told them there is nothing [facility] can do, this is an insurance problem. Pt states they will not be able to schedule with you anymore, because they have to chose the lower co-pay. Patient states they want to see you, but they have to stay on a budget, and go with the lowest cost provider. Reports they filed a 24 hour claim for the appt patient's had with you on 08-24-24 (MR # [id number]) and will let you know the results of that. [facility] 05-19-2024 Telephone encounter Note PATIENT NOTIFIED OF SAME. [facility] 05-19-2024 Miscellaneous Notes PATIENT NOTIFIED OF SAME. Our records do show he only had x1 hep B, he should finish the series. Other vaccines aside from getting the covid and flu vaccines are up to date. Patient is currently at pharmacy to get Covid & flu vaccine. Pharmacy can see that he has had 1 dose of Hepatitis B, 03/25/2022, does he need to start the series over or can he finish. Also, asking what other vaccines he would be due for. Please review & advise. Zhane Choi LPN documented in this encounter [facility] 05-19-2024 Telephone encounter Note Our records do show he only had x1 hep B, he should finish the series. Other vaccines aside from getting the covid and flu vaccines are up to date. [facility] 05-18-2024 Telephone encounter Note Patient is currently at pharmacy to get Covid & flu vaccine. Pharmacy can see that he has had 1 dose of Hepatitis B, 03/25/2022, does he need to start the series over or can he finish. Also, asking what other vaccines he would be due for. Please review & advise. Zhane Choi LPN [facility] 03-17-2024 Telephone encounter Note FYI: pt called in to check and see if next year when for his employee incentive program, can he get a glucose only ran instead of a comprehensive panel. Pt reports his employer in the past paid for this and now this year they are making him pay $30.00. Pt will ask next year to have a glucose only ran. Kang Huffman LPN [facility] 03-17-2024 Miscellaneous Notes FYI: pt called in to check and see if next year when for his employee incentive program, can he get a glucose only ran instead of a comprehensive panel. Pt reports his employer in the past paid for this and now this year they are making him pay $30.00. Pt will ask next year to have a glucose only ran. Kang Huffman LPN documented in this encounter [facility] 03-15-2024 History of Presen t illness Narrative SUBJECTIVE: Depression Screening Never done Anxiety Screening Never done Hepatitis B Vaccine(2 of 3 - 19+ 3-dose series) due on 04/22/2022 HPI Susan Maurice is a 39 year old male. PMH significant for ACTIVE PROBLEM LIST Family History of Vuonwde-Yokpa-Pheiv Disease Family History of Skin Cancer Presents for routine medical exam today. Brings paperwork to complete. He notes continues to work full-time. Notes son requires much assistance. Notes stress eating, ice cream and fast food. 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 Typically NSAID diet. Non-smoker. Weight is stable. Review of Systems Constitutional: Negative. Respiratory: Negative. Cardiovascular: Negative. Endocrine: Negative. Objective BP 122/76 Pulse 84 Resp 16 Ht 178.4 cm (5' 10.25) Wt 90.3 kg (199 lb 1.2 oz) BMI 28.36 kg/m Physical Exam Vitals and nursing note reviewed. Constitutional: Appearance: Normal appearance. HENT: Head: Normocephalic and atraumatic. Mouth/Throat: Lips: [place]. Mouth: Mucous membranes are moist. Tonsils: No tonsillar exudate. Eyes: Conjunctiva/sclera: Conjunctivae normal. Neck: Thyroid: No thyromegaly. Vascular: Normal carotid pulses. No JVD. Cardiovascular: Rate and Rhythm: Normal rate and regular rhythm. Pulses: Carotid pulses are 2+ on the right side and 2+ on the left side. Radial pulses are 2+ on the right side and 2+ on the left side. Heart sounds: Normal heart sounds. Pulmonary: Effort: Pulmonary effort is normal. Breath sounds: Normal breath sounds. Abdominal: General: Bowel sounds are normal. Palpations: Abdomen is soft. Musculoskeletal: Right lower leg: No edema. Left lower leg: No edema. Skin: General: Skin is warm and dry. Neurological: General: No focal deficit present. Mental Status: He is alert and oriented to person, place, and time. ALLERGIES Allergen Reactions Shellfish Containin* Anaphylaxis Iodine Swelling Shellfish Derived Diarrhea, GI Upset, Shortness of Breath Medication fexofenadine (DORIS ALLERGY) 60 mg tablet Take 1 tablet by mouth once daily. albuterol HFA (PROVENTIL HFA) 90 mcg/actuation inhaler Inhale 2 Puffs as instructed every 4 hours as needed for wheezing/shortness of breath. PAST MEDICAL HISTORY No date: ADD (attention deficit disorder) Comment: Doing fine with coffee No date: Teeth grinding Comment: Hs mouth guard Social History Tobacco Use Smoking status: Never Smokeless tobacco: Never Substance Use Topics Alcohol use: Not Currently Comment: bottle of wine every few months Drug use: No Latest Ref [facility] 03/23/2022 03/27/2023 03/12/2024 WBC 3.70 - 11.00 k/uL 5.99 8.97 RBC 4.20 - 6.00 m/uL 5.31 5.24 Hemoglobin 13.0 - 17.0 g/dL 15.7 15.2 Hematocrit 39.0 - 51.0 % 47.1 46.0 MCV 80.0 - 100.0 fL 88.7 87.8 MCH 26.0 - 34.0 pg 29.6 29.0 MCHC 30.5 - 36.0 g/dL 33.3 33.0 RDW-CV 11.5 - 15.0 % 12.7 12.4 Platelet Count 150 - 400 k/uL 227 294 MPV 9.0 - 12.7 fL 11.1 10.3 Neut% % 56.8 67.1 Abs Neut (ANC) 1.45 - 7.50 k/uL 3.40 6.01 Lymph% % 31.4 23.1 Abs Lymph 1.00 - 4.00 k/uL 1.88 2.07 Stewart% % 9.8 8.7 Abs Stewart <0.87 k/uL 0.59 0.78 Eosin% % 1.5 0.4 Abs Eosin <0.46 k/uL 0.09 0.04 Baso% % 0.3 0.4 Abs Baso <0.11 k/uL <0.03 0.04 Immature Gran % % 0.2 0.3 IMMATURE GRANS (ABS) <0.10 k/uL <0.03 0.03 NRBC /100 WBC 0.0 0.0 Absolute nRBC <0.01 k/uL <0.01 <0.01 DTYPE Auto Auto Protein, Total 6.3 - 8.0 g/dL 7.4 7.5 7.1 Albumin 3.9 - 4.9 g/dL 4.8 4.8 4.7 Calcium 8.5 - 10.2 mg/dL 9.7 9.6 9.6 Bilirubin, Total 0.2 - 1.3 mg/dL 0.7 0.5 0.5 Alkaline Phosphatase 38 - 113 U/L 74 89 86 AST 14 - 40 U/L 23 26 37 ALT 10 - 54 U/L 23 27 53 Glucose 74 - 99 mg/dL 92 80 99 BUN 9 - 24 mg/dL 16 23 24 Creatinine 0.73 - 1.22 mg/dL 0.88 0.86 0.82 Sodium 136 - 144 mmol/L 138 137 139 Potassium 3.7 - 5.1 mmol/L 4.3 4.2 4.0 Chloride 98 - 107 mmol/L 102 101 104 CO2 22 - 30 mmol/L 25 24 23 Anion Gap 8 - 15 mmol/L 11 12 12 eGFR >=60 mL/min/1.73m 114 114 115 Cholesterol, Total <200 mg/dL 188 199 216 (H) Triglyceride <150 mg/dL 77 72 184 (H) HDL Cholesterol >39 mg/dL 40 42 38 (L) Non HDL Cholesterol <130 mg/dL 148 (H) 157 (H) 178 (H) Fasting Time hrs 12 19.5 14 VLDL Cholesterol <30 mg/dL 15 14 37 (H) TC:HDL Ratio <5.10 4.70 4.74 5.68 (H) LDL Cholesterol <100 mg/dL 133 (H) 143 (H) 141 (H) LDL:HDL Ratio <2.54 3.33 (H) 3.40 (H) 3.71 (H) ASSESSMENT/PLAN: 1. Wellness examination - ICD9: V70.0, ICD10: Z00.00(primary diagnosis) Recommend a plant based diet such as Mediterranean diet with plenty of vegetables, fruits,whole grains, fish, chicken, turkey or plant proteins and routine exercise such as walking - Counseled on healthy diet and regular exercise 2. Screening for depression - ICD9: V79.0, ICD10: Z13.31 - DEPRESSION SCREENING 3. Encounter for screening examination for other mental health and behavioral disorders - ICD9: V79.8, ICD10: Z13.39 - ANXIETY SCREENING 6-12 mo follow up MD Adrianna Martínez APRN.YARN TEXTURING MACHINE OPERATOR documented in this encounter [facility] 03-15-2024 Note HNO ID: [id number] Author: ADRIANNA ASCENCIO APRN.YARN TEXTURING MACHINE OPERATOR Service: ? Author Type: Nurse Specialist Type: Progress Notes Filed: 03/15/2024 11:47 Note Text: SUBJECTIVE: Depression Screening Never done Anxiety Screening Never done Hepatitis B Vaccine(2 of 3 - 19+ 3-dose series) due on 04/22/2022 HPI Susan Maurice is a 39 year old male. PMH significant for ACTIVE PROBLEM LIST Family History of Fjvfifm-Iihzp-Guyzv Disease Family History of Skin Cancer Presents for routine medical exam today. Brings paperwork to complete. He notes continues to work full-time. Notes son requires much assistance. Notes stress eating, ice cream and fast food. 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 Typically NSAID diet. Non-smoker. Weight is stable. Review of Systems Constitutional: Negative. Respiratory: Negative. Cardiovascular: Negative. Endocrine: Negative. Objective BP 122/76 Pulse 84 Resp 16 Ht 178.4 cm (5' 10.25) Wt 90.3 kg (199 lb 1.2 oz) BMI 28.36 kg/m? Physical Exam Vitals and nursing note reviewed. Constitutional: Appearance: Normal appearance. HENT: Head: Normocephalic and atraumatic. Mouth/Throat: Lips: [place]. Mouth: Mucous membranes are moist. Tonsils: No tonsillar exudate. Eyes: Conjunctiva/sclera: Conjunctivae normal. Neck: Thyroid: No thyromegaly. Vascular: Normal carotid pulses. No JVD. Cardiovascular: Rate and Rhythm: Normal rate and regular rhythm. Pulses: Carotid pulses are 2+ on the right side and 2+ on the left side. Radial pulses are 2+ on the right side and 2+ on the left side. Heart sounds: Normal heart sounds. Pulmonary: Effort: Pulmonary effort is normal. Breath sounds: Normal breath sounds. Abdominal: General: Bowel sounds are normal. Palpations: Abdomen is soft. Musculoskeletal: Right lower leg: No edema. Left lower leg: No edema. Skin: General: Skin is warm and dry. Neurological: General: No focal deficit present. Mental Status: He is alert and oriented to person, place, and time. ALLERGIES Allergen Reactions Shellfish Containin* Anaphylaxis Iodine Swelling Shellfish Derived Diarrhea, GI Upset, Shortness of Breath Medication fexofenadine (DORIS ALLERGY) 60 mg tablet Take 1 tablet by mouth once daily. albuterol HFA (PROVENTIL HFA) 90 mcg/actuation inhaler Inhale 2 Puffs as instructed every 4 hours as needed for wheezing/shortness of breath. PAST MEDICAL HISTORY No date: ADD (attention deficit disorder) Comment: Doing fine with coffee No date: Teeth grinding Comment: Hs mouth guard Social History Tobacco Use Smoking status: Never Smokeless tobacco: Never Substance Use Topics Alcohol use: Not Currently Comment: bottle of wine every few months Drug use: No Latest Ref [facility] 03/23/2022 03/27/2023 03/12/2024 WBC 3.70 - 11.00 k/uL 5.99 8.97 RBC 4.20 - 6.00 m/uL 5.31 5.24 Hemoglobin 13.0 - 17.0 g/dL 15.7 15.2 Hematocrit 39.0 - 51.0 % 47.1 46.0 MCV 80.0 - 100.0 fL 88.7 87.8 MCH 26.0 - 34.0 pg 29.6 29.0 MCHC 30.5 - 36.0 g/dL 33.3 33.0 RDW-CV 11.5 - 15.0 % 12.7 12.4 Platelet Count 150 - 400 k/uL 227 294 MPV 9.0 - 12.7 fL 11.1 10.3 Neut% % 56.8 67.1 Abs Neut (ANC) 1.45 - 7.50 k/uL 3.40 6.01 Lymph% % 31.4 23.1 Abs Lymph 1.00 - 4.00 k/uL 1.88 2.07 Stewart% % 9.8 8.7 Abs Stewart <0.87 k/uL 0.59 0.78 Eosin% % 1.5 0.4 Abs Eosin <0.46 k/uL 0.09 0.04 Baso% % 0.3 0.4 Abs Baso <0.11 k/uL <0.03 0.04 Immature Gran % % 0.2 0.3 IMMATURE GRANS (ABS) <0.10 k/uL <0.03 0.03 NRBC /100 WBC 0.0 0.0 Absolute nRBC <0.01 k/uL <0.01 <0.01 DTYPE Auto Auto Protein, Total 6.3 - 8.0 g/dL 7.4 7.5 7.1 Albumin 3.9 - 4.9 g/dL 4.8 4.8 4.7 Calcium 8.5 - 10.2 mg/dL 9.7 9.6 9.6 Bilirubin, Total 0.2 - 1.3 mg/dL 0.7 0.5 0.5 Alkaline Phosphatase 38 - 113 U/L 74 89 86 AST 14 - 40 U/L 23 26 37 ALT 10 - 54 U/L 23 27 53 Glucose 74 - 99 mg/dL 92 80 99 BUN 9 - 24 mg/dL 16 23 24 Creatinine 0.73 - 1.22 mg/dL 0.88 0.86 0.82 Sodium 136 - 144 mmol/L 138 137 139 Potassium 3.7 - 5.1 mmol/L 4.3 4.2 4.0 Chloride 98 - 107 mmol/L 102 101 104 CO2 22 - 30 mmol/L 25 24 23 Anion Gap 8 - 15 mmol/L 11 12 12 eGFR >=60 mL/min/1.73m? 114 114 115 Cholesterol, Total <200 mg/dL 188 199 216 (H) Triglyceride <150 mg/dL 77 72 184 (H) HDL Cholesterol >39 mg/dL 40 42 38 (L) Non HDL Cholesterol <130 mg/dL 148 (H) 157 (H) 178 (H) Fasting Time hrs 12 19.5 14 VLDL Cholesterol <30 mg/dL 15 14 37 (H) TC:HDL Ratio <5.10 4.70 4.74 5.68 (H) LDL Cholesterol <100 mg/dL 133 (H) 143 (H) 141 (H) LDL:HDL Ratio <2.54 3.33 (H) 3.40 (H) 3.71 (H) ASSESSMENT/PLAN: 1. Wellness examination - ICD9: V70.0, ICD10: Z00.00(primary diagnosis) Recommend a plant based diet such as Mediterranean diet with plenty of vegetables, fruits,whole grains, fish, chicken, turkey or plant proteins and routine exercise such as walking - Counseled on healthy diet and regular exercise 2. Screening for depression - ICD9: (more content not included)... [facility] 03-11-2024 Telephone encounter Note Patient notified of lab orders, verbalizes understanding of instructions. Judson Ellison LPN [facility] 03-11-2024 Miscellaneous Notes Patient notified of lab orders, verbalizes understanding of instructions. Judson Ellison LPN ok Patient has upcoming physical for insurance and there is required lab work they need completed. Asking if a CMP and Lipid pnael can be placed for him to have completed tomorrow. Appointment for physical is 8/5. Please advise. documented in this encounter [facility] 03-11-2024 Telephone encounter Note ok [facility] 03-10-2024 Telephone encounter Note Patient has upcoming physical for insurance and there is required lab work they need completed. Asking if a CMP and Lipid pnael can be placed for him to have completed tomorrow. Appointment for physical is 03/15. Please advise. [facility] 12-09-2023 Telephone encounter Note My Chart with reply sent. [facility] 12-09-2023 Miscellaneous Notes My Chart with reply sent. LEFT MESSAGE FOR PATIENT TO CALL OFFICE. May take Claritin D as long as he needs to control allergy symptoms. Okay to take daily. Main limitation would be if Claritin D caused any adverse effects. Decongestant could cause high BP or insomnia for some people. Patient calling for PCP's recommendation. Reports he has seasonal allergies currently and is taking Claritin D. Asking how long he can take this medication? Patient aware that he can contact Pharmacist, however pt requesting advise from PCP. Please advise. Thank you. documented in this encounter [facility] 12-08-2023 Telephone encounter Note LEFT MESSAGE FOR PATIENT TO CALL OFFICE. [facility] 12-05-2023 Telephone encounter Note May take Claritin D as long as he needs to control allergy symptoms. Okay to take daily. Main limitation would be if Claritin D caused any adverse effects. Decongestant could cause high BP or insomnia for some people. [facility] Work Phone: 12-03-2023 Telephone encounter Note PATIENT NOTIFIED OF SAME. [facility] 12-03-2023 Miscellaneous Notes PATIENT NOTIFIED OF SAME. Okay to take the melatonin as 10 mg, take no more than 12 mg. If issues persist then he should come in to the office for an appointment. Marcelle Bah APRN.[place] Patient calls and states that he thinks that his urinary frequency and sleep problems stem from working an irregular shift. 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 Patient has been having issues with urinary frequency more afternoons and later evening. Patient currently is at work. Patient works from 4 am to noon today. Patient states that he will go home and sleep a couple of hours then be up with his kids. Patient will go back to work at midnight after sleeping from 7:30 pm to midnight. Patient has noticed that when he is sleeping normal hours and rn shift mgr he does not have issues with urinary frequency. Patient also notices that he has not had issues since switching to lactose free milk and not taking cyclobenzaprine. Patient states that throughout the night he will drink 3 cups of coffee. Patient states that he has been taking 10 mg of melatonin which has seemed to help better than 5 mg. Patient asking if taking 10 mg is ok to take? Please review and advise, Renetta Rhoades RN Pt concerned about sleep pattern with bladder issues. Requesting sleep aid documented in this encounter [facility] 12-03-2023 Telephone encounter Note Okay to take the melatonin as 10 mg, take no more than 12 mg. If issues persist then he should come in to the office for an appointment. Marcelle Bah APRN.DIPLOMATIC COURIER [facility] Work Phone: 12-03-2023 Telephone encounter Note Patient calls and states that he thinks that his urinary frequency and sleep problems stem from working an irregular shift. 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 Patient has been having issues with urinary frequency more afternoons and later evening. Patient currently is at work. Patient works from 4 am to noon today. Patient states that he will go home and sleep a couple of hours then be up with his kids. Patient will go back to work at midnight after sleeping from 7:30 pm to midnight. Patient has noticed that when he is sleeping normal hours and rn shift mgr he does not have issues with urinary frequency. Patient also notices that he has not had issues since switching to lactose free milk and not taking cyclobenzaprine. Patient states that throughout the night he will drink 3 cups of coffee. Patient states that he has been taking 10 mg of melatonin which has seemed to help better than 5 mg. Patient asking if taking 10 mg is ok to take? Please review and advise, Renetta Rhoades RN [facility] 12-02-2023 Telephone encounter Note Pt concerned about sleep pattern with bladder issues. Requesting sleep aid [facility] 11-24-2023 Telephone encounter Note Patient calling for PCP's recommendation. Reports he has seasonal allergies currently and is taking Claritin D. Asking how long he can take this medication? Patient aware that he can contact Pharmacist, however pt requesting advise from PCP. Please advise. Thank you. [facility] 11-11-2023 Miscellaneous Notes Pt was seen 11/[address] Ojeda for urinary frequency/OAB. Pt had started on Cyclobenzaprine and Dr. Ojeda told pt that could be the cause so he suggested pt stop it. Pt states after he stopped it, the frequency improved quite a bit. Pt states that he did not drink milk yesterday or today and is feeling better than he has in a long time. Asking if dairy products can cause urinary frequency. Explained to pt that dairy products can be bladder irritants. Pt is going to monitor his dairy and bladder symptoms to see if it coincides. Will update or call us as needed. documented in this encounter [facility] 04-01-2023 Miscellaneous Notes Patient notified of providers message and verbalized understanding. Patient did go to the ER and they gave him viscous lidociane to gargle with for the sore throat. Tonsils were not swollen no stridor or trouble breathing or swallowing. Patient was upset with care in urgent care but does not want to pursue the matter with nurse environmental health and safety manager or ombudsman. Will continue to see Adrianna GUZMAN and Dr. Christian and does have a hospital f/u scheduled with Dr. Christian next week. If he is in the ER he should follow their directions for treatment for now. I added amoxicillin to his allergy list. I can forward his concern to nurse management or ombudsman or both if he would like to do so. Patient called in to speak to nurse regarding worsening symptoms he was experiencing, feeling like his throat was swelling. He described burning tongue and inflammation. The triage nurse encouraged him to go to [facility], and his experience there was not great. He communicated that he felt that he was having a reaction to the amoxicillin and asked if he could wait and send a message to Adrianna, and they told him that no, he could not do that, and he needed to go to the ER. The patient communicated that the [facility] provider seemed frustrated with him, throwing up his hands at one point, saying that they would send in someone else to deal with him. He then went to the ER, where they told him that [facility] could have given him benadryl or other treatment options, and that he probably didn't need the ER. He is currently in the ER and under observation, and will stay there and do as they say. Patient is not angry and stated he does not want to complain but is feeling like he was not heard and is not exactly sure how to proceed. He would like advice from Adrianna on what to do next. documented in this encounter [facility] 03-31-2023 Miscellaneous Notes Patient was seen in and was referred to ER for further evaluation. Christina Fine, RN Reviewed triage protocol guidelines with patient. Advised ER evaluation for potential allergic reaction to Amoxicillin. He states he does not want to go to ER due to high co-pay. States he will come to [facility]. Advised patient ER is more appropriate for his symptoms. Christina Fine RN Reason for Disposition [1] Recent medical visit within 24 hours AND [2] NEW symptom AND [3] that could be serious Answer Assessment - Initial Assessment Questions 1. MAIN CONCERN OR SYMPTOM: My throat feels worse, more swollen since my OV today. My tongue feels a little swollen on the sides. [facility] to [facility] and they told me I have a sinus infection. They did a strep test and it was negative. I asked them for Prednisone and they wouldn't give me any. 2. ONSET: this afternoon 3. [id number]: worse after OV 4. VISIT DATE: Today 03/31/23 5. VISIT DOCTOR: Patient saw Adrianna GUZMAN today 6. VISIT DIAGNOSIS: URI with sore throat x 14 days 7. VISIT MEDICINES: Prescribed Amoxicillin. Has taken one dose 8. NEXT APPOINTMENT: No 9. PAIN: - MILD (1-3): doesn't interfere with normal activities - MODERATE (4-7): interferes with normal activities or awakens from sleep 10. FEVER: No fever 11. OTHER SYMPTOMS: Denies difficulty swallowing/breathing. No gali oral numbness or tingling. Protocols used: Recent Medical Visit for Illness Follow-up [id number] documented in this encounter [facility] 03-31-2023 History of Presen t illness Narrative Subjective HPI Susan Maurice is a 38 year old male who presents with a concern that his tongue and throat are swelling after taking amoxicillin. He went to his PCP today for a wellness physical and told her he had a sore throat for 15 days. She gave him amoxicillin to take. He took one dose of this and noticed his throat and tongue felt like they were swelling. [facility] who told him he had a sinus infection under his tongue. They did a strep test and that was negative. He is now here and continues to complain of throat and tongue swelling. He wants to know if this is of concern. Review of Systems Constitutional: Negative for fever. HENT: Positive for sore throat. Skin: Negative for rash. PAST MEDICAL HISTORY Diagnosis Date ADD (attention deficit disorder) Doing fine with coffee Teeth grinding Hs mouth guard PAST SURGICAL HISTORY Procedure Laterality Date PAST SURGICAL HISTORY OF broken leg PAST SURGICAL HISTORY OF surgery for broken thumb ALLERGIES Shellfish Containing Products, Iodine, and Shellfish Derived MEDICATIONS amoxicillin (AMOXIL) 875 mg tablet Take 1 tablet by mouth twice daily for 10 days. albuterol HFA (PROVENTIL HFA) 90 mcg/actuation inhaler Inhale 2 Puffs as instructed every 4 hours as needed for wheezing/shortness of breath. melatonin 10 mg tab Take 5 mg by mouth daily at bedtime. fexofenadine (DORIS ALLERGY) 60 mg tablet Take 1 tablet by mouth once daily. FAMILY HISTORY Problem Relation Age of Onset Diabetes Father type 2 Skin Cancer Father Not sure type Diabetes Maternal Grandmother type 2 other (hypercholesterolemia) Mother Social History Tobacco Use Smoking status: Never Smokeless tobacco: Never Substance Use Topics Alcohol use: Not Currently Comment: bottle of wine every few months Drug use: No Objective Physical Exam Nursing note reviewed. Constitutional: Appearance: Normal appearance. HENT: Mouth/Throat: Lips: [place]. Mouth: Mucous membranes are moist. Comments: Tongue is swollen in appearance. Lymphadenopathy: Cervical: No cervical adenopathy. Neurological: Mental Status: He is alert. ASSESSMENT/PLAN: 1. Tongue swelling - ICD9: 784.2, ICD10: R22.0 - patient advised to go to ER for further evaluation and treatment of possible airway swelling. He could be having an allergic reaction to amoxicillin. Patient is argumentative, states he wants some prednisone. I advised him that prednisone is not an appropriate treatment for airway concerns. He then asks if he will still be charged a co pay for his visit. I advised him yes, he will be, as he came here for evaluation and a professional opinion which he has received. He continues to engage in circular conversations and I again advised him to seek care in the emergency room. He did not want to follow this advice so I had Dr. Smith speak with him further who reinforced my recommendation. Luanne Gonzalez APRN.[place] documented in this encounter [facility] 03-31-2023 Instructions Adrianna Ascencio APRN.YARN TEXTURING MACHINE OPERATOR - 03/31/2023 9:49 AM EDT Continue to eat a plant-based diet such as Mediterranean diet. If using a sugar substitute use Stevia. Try to walk or other activity daily to help keep weight, glucose and cholesterol levels in check Consider getting second hepatitis B shot either here or at your local pharmacy. Consider getting the flu shot and COVID booster in April or May. This can be done here in the clinic or at your local pharmacy. documented in this encounter [facility] 03-31-2023 History of Presen t illness Narrative SUBJECTIVE: HEPATITIS B(2 of 3 - 19+ 3-dose series) due on 04/22/2022 DEPRESSION ASSESSMENT Never done HPI Susan Maurice is a 38 year old male. PMH significant for ACTIVE PROBLEM LIST Family History of Woxdjgk-Qpuoe-Egslx Disease Family History of Skin Cancer Trigger Finger Presents for routine medical exam today. Brings paperwork to complete. Since last year he was seen at [facility] ER for laceration of left fifth finger. Reports son and are seen for sore throat, both negative for COVID and strep. He reports he has currently had a sore throat x14 days. No other URI symptoms reported. Has not yet sought care. Negative COVID test at home. Afebrile. Has been using [id number] treatment -something similar to Cepacol with benzocaine which has helped. He reports anxiety which was occurring during COVID has resolved. He reports his employer told him there was a 14% rate and customers were throwing food at coworkers. He did go to counseling at the time. Currently without complaints regarding anxiety and depression. He notes his son has autism and has 30 hours of intensive therapy per week and multiple doctors appointments making it difficult to exercise routinely. Notes trying to eat a healthy diet but some indiscretions. Notes 10 lb weight gain this year. He reports using sugar substitute due to family history of diabetes. Review of Systems Constitutional: Negative. HENT: Positive for sore throat. Respiratory: Negative. Cardiovascular: Negative. Endocrine: Negative. Objective BP 120/80 Pulse 92 Resp 16 Ht 179.7 cm (5' 10.75) Wt 88.9 kg (196 lb) SpO2 98% BMI 27.53 kg/m Physical Exam Vitals and nursing note reviewed. Constitutional: Appearance: Normal appearance. HENT: Head: Normocephalic and atraumatic. Mouth/Throat: Lips: [place]. Mouth: Mucous membranes are moist. Pharynx: Posterior oropharyngeal erythema (mild) present. Tonsils: No tonsillar exudate. Eyes: Conjunctiva/sclera: Conjunctivae normal. Neck: Thyroid: No thyromegaly. Vascular: Normal carotid pulses. No JVD. Cardiovascular: Rate and Rhythm: Normal rate and regular rhythm. Pulses: Carotid pulses are 2+ on the right side and 2+ on the left side. Radial pulses are 2+ on the right side and 2+ on the left side. Heart sounds: Normal heart sounds. Pulmonary: Effort: Pulmonary effort is normal. Breath sounds: Normal breath sounds. Abdominal: General: Bowel sounds are normal. Palpations: Abdomen is soft. Musculoskeletal: Right lower leg: No edema. Left lower leg: No edema. Skin: General: Skin is warm and dry. Neurological: General: No focal deficit present. Mental Status: He is alert and oriented to person, place, and time. ALLERGIES Allergen Reactions Shellfish Containin* Anaphylaxis Iodine Swelling Shellfish Derived Diarrhea, GI Upset, Shortness of Breath Medication albuterol HFA (PROVENTIL HFA) 90 mcg/actuation inhaler Inhale 2 Puffs as instructed every 4 hours as needed for wheezing/shortness of breath. melatonin 10 mg tab Take 5 mg by mouth daily at bedtime. fexofenadine (DORIS ALLERGY) 60 mg tablet Take 1 tablet by mouth once daily. PAST MEDICAL HISTORY Diagnosis Date ADD (attention deficit disorder) Doing fine with coffee Teeth grinding Hs mouth guard Social History Tobacco Use Smoking status: Never Smokeless tobacco: Never Substance Use Topics Alcohol use: Not Currently Comment: bottle of wine every few months Drug use: No Component Latest Ref Rng & Units 03/23/2022 03/27/2023 WBC 3.70 - 11.00 k/uL 5.99 8.97 RBC 4.20 - 6.00 m/uL 5.31 5.24 Hemoglobin 13.0 - 17.0 g/dL 15.7 15.2 Hematocrit 39.0 - 51.0 % 47.1 46.0 MCV 80.0 - 100.0 fL 88.7 87.8 MCH 26.0 - 34.0 pg 29.6 29.0 MCHC 30.5 - 36.0 g/dL 33.3 33.0 RDW-CV 11.5 - 15.0 % 12.7 12.4 Platelet Count 150 - 400 k/uL 227 294 MPV 9.0 - 12.7 fL 11.1 10.3 Neut% % 56.8 67.1 Abs Neut (ANC) 1.45 - 7.50 k/uL 3.40 6.01 Lymph% % 31.4 23.1 Abs Lymph 1.00 - 4.00 k/uL 1.88 2.07 Stewart% % 9.8 8.7 Abs Stewart <0.87 k/uL 0.59 0.78 Eosin% % 1.5 0.4 Abs Eosin <0.46 k/uL 0.09 0.04 Baso% % 0.3 0.4 Abs Baso <0.11 k/uL <0.03 0.04 Immature Gran % % 0.2 0.3 IMMATURE GRANS (ABS) <0.10 k/uL <0.03 0.03 NRBC /100 WBC 0.0 0.0 Absolute nRBC <0.01 k/uL <0.01 <0.01 DTYPE Auto Auto Protein, Total 6.3 - 8.0 g/dL 7.4 7.5 Albumin 3.9 - 4.9 g/dL 4.8 4.8 Calcium 8.5 - 10.2 mg/dL 9.7 9.6 Bilirubin, Total 0.2 - 1.3 mg/dL 0.7 0.5 Alkaline Phosphatase 38 - 113 U/L 74 89 AST 14 - 40 U/L 23 26 ALT 10 - 54 U/L 23 27 Glucose 74 - 99 mg/dL 92 80 BUN 9 - 24 mg/dL 16 23 Creatinine 0.73 - 1.22 mg/dL 0.88 0.86 Sodium 136 - 144 mmol/L 138 137 Potassium 3.7 - 5.1 mmol/L 4.3 4.2 Chloride 97 - 105 mmol/L 102 101 CO2 22 - 30 mmol/L 25 24 Anion Gap 9 - 18 mmol/L 11 12 eGFR >=60 mL/min/1.73m 114 114 Cholesterol, Total <200 mg/dL 188 199 Triglyceride <150 mg/dL 77 72 HDL Cholesterol >39 mg/dL 40 42 Non HDL Cholesterol <130 mg/dL 148 (H) 157 (H) Fasting Time hrs 12 19.5 VLDL Cholesterol <30 mg/dL 15 14 TC:HDL Ratio <5.10 4.70 4.74 LDL Cholesterol <100 mg/dL 133 (H) 143 (H) LDL:HDL Ratio <2.54 3.33 (H) 3.40 (H) The ASCVD Risk score (Shaheen FERRER, et al., 2019) failed to calculate for the following reasons: The 2019 ASCVD risk score is only valid for ages 40 to 79 ASSESSMENT/PLAN: 1. Routine medical exam - ICD9: V70.0, ICD10: Z00.00 (primary diagnosis) - Endorse healthy plant-based diet such as Mediterranean diet and regular exercise such as walking 2. Encounter for immunization - ICD9: V03.89, ICD10: Z23 - HEP B VACCINE, 3-DOSE, AGE 20+ YR (ENGERIX-B, RECOMBIVAX HB) 3. Encounter for screening for diabetes mellitus - ICD9: V77.1, ICD10: Z13.1 Glucose within normal limits 4. Screening, lipid - ICD9: V77.91, ICD10: Z13.220 Recommend a plant based diet such as Mediterranean diet with plenty of vegetables, fruits,whole grains, fish, chicken, turkey or plant proteins and routine exercise such as walking 5. Environmental allergies - ICD9: V15.09, ICD10: Z91.09 Stable, currently controlled, continue to monitor. 6. Sore throat - ICD9: 462, ICD10: J02.9 He reports and son with sore throat both negative for COVID and strep. Okay to continue with zrgh-unf-sponmbo benzocaine lozenges for now. If not improving consider taking amoxicillin. - AMOXICILLIN 875 MG TABLET 1 year follow up MD Adrianna Martínez APRN.YARN TEXTURING MACHINE OPERATOR documented in this encounter [facility] 11-17-2022 Emergency department Note Discharge instructions reviewed with pt. Pt provided with 2 copies of WC paperwork. Pt educated to follow up with [employer] and provided with number to call tomorrow. Pt verbalized understanding. Pressure dressing applied to pt's finger per verbal order from Dr. Gonzalez. Pt ambulated out of ER with steady gait [facility] 11-17-2022 Emergency department Note Discharge instructions reviewed with pt. Pt provided with 2 copies of paperwork. Pt educated to follow up with [employer] and provided with number to call tomorrow. Pt verbalized understanding. Pressure dressing applied to pt's finger per verbal order from Dr. Gonzalez. Pt ambulated out of ER with steady gait Workrs comp paperwork scanned to [employer] at this time Pt finished workers comp paperwork at this time Emergency Department Report [facility] Service Date:.11/17/22 PCP: No primary care provider on file. Chief Complaint: Chief Complaint Patient presents with Laceration HPI Susan Maurice is a 37 y.o. male presents to the ED with chief complaint of laceration of left 5th digit. 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 States it bled briskly. There was no pulsatile bleeding. He states he could not see how deep it was. He states this occurred 30 minutes prior to arrival. He is right-hand dominant. He denies any other injury. He states his last tetanus shot was within 5 years. He is on no blood thinning medications Review of Systems: Review of Systems Skin: Positive for laceration of the 5th digit Neurologic: Negative for numbness or tingling to the digits Past Medical History: No past medical history on file. Past Surgical History: No past surgical history on file. Allergies: Allergies Allergen Reactions Iodine Swelling Medications: Patient's Medications New Prescriptions No medications on file Previous Medications AMOXICILLIN (AMOXIL) 875 MG TAB take 1 Tab by mouth 2 times daily. BENZONATATE (TESSALON PERLES) 100 MG CAP Take 100-200mg by mouth every 6-8 hours for 10 days. Modified Medications No medications on file Discontinued Medications No medications on file Family History: History reviewed. No pertinent family history. Social History: Social History Socioeconomic History Marital status: Spouse name: Not on file Number of children: Not on file Years of education: Not on file Highest education level: Not on file Occupational History Not on file Tobacco Use Smoking status: Never Smokeless tobacco: Not on file Substance and Sexual Activity Alcohol use: Not on file Drug use: Not on file Sexual activity: Not on file Other Topics Concern Not on file Social History Narrative Not on file Social Determinants of Health Financial Resource Strain: Not on file Food Insecurity: Not on file Transportation Needs: Not on file Physical Activity: Not on file Stress: Not on file Social Connections: Not on file Intimate Partner Violence: Not on file Housing Stability: Not on file Physical Exam: Physical Exam General: Well-nourished well-developed HENT: Head is atraumatic. Face is symmetric. Mucous membranes are well hydrated Skin: Warm, dry. Patient has a 2 mm laceration at the edge of the left 5th digit fingernail. There is some slight capillary oozing. No pulsatile bleeding. No known injury to the nail bed Neurologic: Intact sensation of the tips of the digits. Hand grasps are strong Musculoskeletal: No angulation deformity or fracture Vital Signs During ED Visit Patient Vitals for the past 24 hrs: BP Temp Temp src Pulse Resp SpO2 Height 11/17/22 0742 -- -- -- -- -- -- 1.803 m (5' 11) 11/17/22 0741 125/73 97.7 F (36.5 C) Oral 75 18 98 % -- Orders/Results: No results found for this visit on 11/17/22. Radiographic Imaging No orders to display Procedures: Procedures Moderate Sedation Procedure: No ED Summary/MDM The wound was cleaned. Inspected. No foreign body. The laceration is small and does not require closure. Bacitracin was applied to this area. The wound was then placed in a sterile dressing. He is discharged home. He will follow-up with occupational health. Motrin as needed for pain Clinical Impression: 1. Laceration of left little finger without foreign body without damage to nail, initial encounter No follow-ups on file. New Prescriptions No medications on file Discontinued Medications No medications on file An After Visit Summary was printed and given to the patient with above information. . Jael Gonzalez MD 11/17/22 0759 Pt was at work when he lacerated his pinky finger on his left hand. Pt is up to date on his tetanus vaccination. documented in this encounter [facility] 11-17-2022 Emergency department Note Workrs comp paperwork scanned to [employer] at this time [facility] 11-17-2022 Emergency department Note Pt finished workers comp paperwork at this time [facility] 11-17-2022 Physician Emergency department Note Emergency Department Report [facility] Service Date:.11/17/22 PCP: No primary care provider on file. Chief Complaint: Chief Complaint Patient presents with Laceration HPI Susan Maurice is a 37 y.o. male presents to the ED with chief complaint of laceration of left 5th digit. 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 States it bled briskly. There was no pulsatile bleeding. He states he could not see how deep it was. He states this occurred 30 minutes prior to arrival. He is right-hand dominant. He denies any other injury. He states his last tetanus shot was within 5 years. He is on no blood thinning medications Review of Systems: Review of Systems Skin: Positive for laceration of the 5th digit Neurologic: Negative for numbness or tingling to the digits Past Medical History: No past medical history on file. Past Surgical History: No past surgical history on file. Allergies: Allergies Allergen Reactions Iodine Swelling Medications: Patient's Medications New Prescriptions No medications on file Previous Medications AMOXICILLIN (AMOXIL) 875 MG TAB take 1 Tab by mouth 2 times daily. BENZONATATE (TESSALON PERLES) 100 MG CAP Take 100-200mg by mouth every 6-8 hours for 10 days. Modified Medications No medications on file Discontinued Medications No medications on file Family History: History reviewed. No pertinent family history. Social History: Social History Socioeconomic History Marital status: Spouse name: Not on file Number of children: Not on file Years of education: Not on file Highest education level: Not on file Occupational History Not on file Tobacco Use Smoking status: Never Smokeless tobacco: Not on file Substance and Sexual Activity Alcohol use: Not on file Drug use: Not on file Sexual activity: Not on file Other Topics Concern Not on file Social History Narrative Not on file Social Determinants of Health Financial Resource Strain: Not on file Food Insecurity: Not on file Transportation Needs: Not on file Physical Activity: Not on file Stress: Not on file Social Connections: Not on file Intimate Partner Violence: Not on file Housing Stability: Not on file Physical Exam: Physical Exam General: Well-nourished well-developed HENT: Head is atraumatic. Face is symmetric. Mucous membranes are well hydrated Skin: Warm, dry. Patient has a 2 mm laceration at the edge of the left 5th digit fingernail. There is some slight capillary oozing. No pulsatile bleeding. No known injury to the nail bed Neurologic: Intact sensation of the tips of the digits. Hand grasps are strong Musculoskeletal: No angulation deformity or fracture Vital Signs During ED Visit Patient Vitals for the past 24 hrs: BP Temp Temp src Pulse Resp SpO2 Height 11/17/22 0742 -- -- -- -- -- -- 1.803 m (5' 11) 11/17/22 0741 125/73 97.7 F (36.5 C) Oral 75 18 98 % -- Orders/Results: No results found for this visit on 11/17/22. Radiographic Imaging No orders to display Procedures: Procedures Moderate Sedation Procedure: No ED Summary/MDM The wound was cleaned. Inspected. No foreign body. The laceration is small and does not require closure. Bacitracin was applied to this area. The wound was then placed in a sterile dressing. He is discharged home. He will follow-up with occupational health. Motrin as needed for pain Clinical Impression: 1. Laceration of left little finger without foreign body without damage to nail, initial encounter No follow-ups on file. New Prescriptions No medications on file Discontinued Medications No medications on file An After Visit Summary was printed and given to the patient with above information. . Jael Gonzalez MD 11/17/22 0759 T [facility] Work Phone: 11-17-2022 Emergency department Note Pt was at work when he lacerated his pinky finger on his left hand. Pt is up to date on his tetanus vaccination. [facility] 08-23-2022 Miscellaneous Notes PATIENT NOTIFIED OF SAME. Lab orders placed for appointment in March. Patient needing lab orders for yearly physical in Mar. documented in this encounter [facility] 03-25-2022 Instructions Adrianna Ascencio APRN.YARN TEXTURING MACHINE OPERATOR - 03/25/2022 8:02 AM EDT Recommend a plant based diet such as Mediterranean diet with plenty of vegetables, fruits,whole grains, fish, chicken, turkey or plant proteins and routine exercise such as walking. Avoid excess sugar in your diet. Stay active. documented in this encounter [facility] 03-25-2022 History of Presen t illness Narrative HPI Susan Maurice is a 35 year old male seen for routine follow up. PMH significant for ACTIVE PROBLEM LIST Family History of Edmbjht-Iszne-Zjygk Disease Family History of Skin Cancer Trigger Finger Since last here he has seen in urgent care for nasal congestion, Covid19 exposure, most recent negative PCR. Notes he is in his usual state of good health. Notes child is in daycare so more exposure to respiratory illness lately. Notes avoiding excess sugar in diet, consumes a healthy diet. Notes no longer feeling anxious or depressed. Uses albuterol inhaler prior to mowing. Notes allergies seem well controlled currently. Nasacort has helped a lot. Has used albuterol inhaler if cough or wheezing. This is been helpful. HISTORY REVIEWED (electronic chart updated): - medical history - medications - allergies REVIEW OF SYSTEMS: GENERAL: feeling well without fatigue, no recent change in weight, no fever, activity level is normal RESPIRATORY: no wheezing or shortness of breath CARDIOVASCULAR: no chest pain, no palpitations, no leg swelling NEURO: no numbness or paresthesias, no weakness of the extremities and no headache Psych: As noted in HPI PHYSICAL EXAMINATION: BP 120/80 Pulse 72 Resp 16 Ht 179.7 cm (5' 10.75) Wt 84.8 kg (187 lb) BMI 26.27 kg/m General appearance: Well appearing, alert, in no acute distress, well-hydrated, well nourished. Skin: Skin color, texture, turgor normal, no suspicious rashes or lesions Head: Normocephalic, no masses, lesions, tenderness or abnormalities Eyes: Anicteric sclera. Neck: Supple, no adenopathy; thyroid symmetric, normal size, no bruits Lungs: Lungs clear to auscultation. No wheezing, rhonchi, rales. Heart: RRR without murmur, gallop, or rubs. Abdomen: Abdomen soft, non-tender. Bowel sounds normal. No masses, organomegaly Extremities: No deformities, edema, skin discoloration, Good capillary refill. Musculoskeletal: No joint swelling, deformity, or tenderness Peripheral pulses: Normal Neuro: Gait normal. Component Latest Ref Rng & Units 04/24/2018 02/22/2019 01/10/2021 03/23/2022 WBC 3.70 - 11.00 k/uL 5.99 RBC 4.20 - 6.00 m/uL 5.31 Hemoglobin 13.0 - 17.0 g/dL 15.7 Hematocrit 39.0 - 51.0 % 47.1 MCV 80.0 - 100.0 fL 88.7 MCH 26.0 - 34.0 pg 29.6 MCHC 30.5 - 36.0 g/dL 33.3 RDW-CV 11.5 - 15.0 % 12.7 Platelet Count 150 - 400 k/uL 227 MPV 9.0 - 12.7 fL 11.1 Neut% % 56.8 Abs Neut (ANC) 1.45 - 7.50 k/uL 3.40 Lymph% % 31.4 Abs Lymph 1.00 - 4.00 k/uL 1.88 Stewart% % 9.8 Abs Stewart <0.87 k/uL 0.59 Eosin% % 1.5 Abs Eosin <0.46 k/uL 0.09 Baso% % 0.3 Abs Baso <0.11 k/uL <0.03 Immature Gran % % 0.2 IMMATURE GRANS (ABS) <0.10 k/uL <0.03 NRBC /100 WBC 0.0 Absolute nRBC <0.01 k/uL <0.01 DTYPE Auto Protein, Total 6.3 - 8.0 g/dL 7.4 Albumin 3.9 - 4.9 g/dL 4.8 Calcium 8.5 - 10.2 mg/dL 9.7 Bilirubin, Total 0.2 - 1.3 mg/dL 0.7 Alkaline Phosphatase 38 - 113 U/L 74 AST 14 - 40 U/L 23 ALT 10 - 54 U/L 23 Glucose 74 - 99 mg/dL 92 BUN 9 - 24 mg/dL 16 Creatinine 0.73 - 1.22 mg/dL 0.88 Sodium 136 - 144 mmol/L 138 Potassium 3.7 - 5.1 mmol/L 4.3 Chloride 97 - 105 mmol/L 102 CO2 22 - 30 mmol/L 25 Anion Gap 9 - 18 mmol/L 11 eGFR >=60 mL/min/1.73m 114 Cholesterol, Total <200 mg/dL 183 191 213 (H) 188 Triglyceride <150 mg/dL 65 112 97 77 HDL Cholesterol >39 mg/dL 39 (L) 43 40 40 LDL Cholesterol <100 mg/dL 131 (H) 126 (H) 154 (H) 133 (H) Non HDL Cholesterol <130 mg/dL 144 (H) 148 (H) 173 (H) 148 (H) Fasting Time hrs 12 14 14 12 VLDL Cholesterol <30 mg/dL 13 22 19 15 TC:HDL Ratio <5.10 4.69 4.44 5.33 (H) 4.70 LDL:HDL Ratio <2.54 3.36 (H) 2.93 (H) 3.85 (H) 3.33 (H) Glucose, Fasting 74 - 99 mg/dL 89 94 102 (H) The ASCVD Risk score ([place] MARLA Jr., et al., 2013) failed to calculate for the following reasons: The 2013 ASCVD risk score is only valid for ages 40 to 79 ASSESSMENT: (Z00.00) Routine medical exam (primary encounter diagnosis) (Z23) Encounter for immunization (F41.9, F32.A) Anxiety and depression (Z91.09) Environmental allergies PLAN: 1. Routine medical exam - ICD9: V70.0, ICD10: Z00.00 (primary diagnosis) - Counseled on healthy diet and regular exercise 2. Encounter for immunization - ICD9: V03.89, ICD10: Z23 - HEPATITIS B VACCINE, ADULT AGE 20+, IM - HEPATITIS B VACCINE, ADULT AGE 20+, IM 3. Anxiety and depression - ICD9: 300.00, 311, ICD10: F41.9, F32.A Resolved 4. Environmental allergies - ICD9: V15.09, ICD10: Z91.09 Well controlled. continue current treatment unchanged. 1 yr follow up.pcp Adrianna Ascencio APRN.CNS Patient Instructions Recommend a plant based diet such as Mediterranean diet with plenty of vegetables, fruits,whole grains, fish, chicken, turkey or plant proteins and routine exercise such as walking Adrianna Ascencio APRN.CNS documented in this encounter [facility] 12-31-2021 History of Presen t illness Narrative Telemedicine Visit - Distance Health Virtual Visit Note Patient seen on [employer] Online platform. Location of patient: [place] Melo Christian MD History of Present Illness Susan Maurice is a 36 year old year old male who presents with questions regarding COVID and how long to quar intine after close exposure. Patient's tested positive and both the patient and son tested negative through PCR and are asymptomatic. Patient in wondering how long he needs to quarantine. ASSESSMENT/PLAN: 1. Exposure to COVID-19 virus - ICD9: V01.79, ICD10: Z20.822 - Recommend to quarantine 5 days after close exposure and then wear a mask 5 days after that. - Red flags discussed for need for in person care - All questions answered Lizz Bowie APRN.CNP If you let us know who your primary care provider is, we will send them a notification of today's visit through our electronic medical records system. Since not all providers have access to our notifications, we strongly encourage you to share the following record of today's visit with your primary care provider at your next visit. This will help in providing you the best care. If you do not have an established Primary Care physician and would like to continue care with a [facility] Virtual Primary Care physician, please ask your provider to place a Establish Primary Care order. Use Arim[employer] to manage your care, wherever you are, 03/03, on your mobile device or computer. Arimaz connects you to [employer] so you can access all your health information in one place and also schedule and request virtual appointments with primary care providers. documented in this encounter [facility] 12-29-2021 Instructions Julian Hernandez APRN.CNP - 12/29/2021 11:34 AM EDT Resources for Managing Anxiety During COVID Crisis https://www.virusanPerfect Price.com https://www.cdc.gov/coronavirus/ 2019-ncov/prepare/managing-stres s-anxiety.html https://coronavirus.[place].gov/wps /portal/gov/covid-19/home/resour mary/wjzgpzklr-psc-zrweie-coping- ospn-vjl-susxs-19-pandemic www.[employer]/us/blog/ rdz-xigdr-puvrrcsyzdkq//ho u-lzlcyh-vqroxvwzcow-anxiety https://www.[employer]/ us/blog/iwl-nftez-vyakjbx/ /00-rwqa-ksesgammi-calm-positivi ty-now https://www.[employer]/ us/blog/experimentations// 0-fuazncmdhyo-emlexykwvye-weathe ring-adversity How to Protect Yourself & Others from COVID-19 Wash your hands often Wash your hands often with soap and water for at least 20 seconds especially after you have been in a public place, or after blowing your nose, coughing, or sneezing. If soap and water are not readily available, use a hand corporate concierge that contains at least 60% alcohol. Cover all surfaces of your hands and rub them together until they feel dry. Avoid touching your eyes, nose, and mouth with unwashed hands. Avoid close contact Inside your home: Avoid close contact with people who are sick. If possible, maintain 6 feet between the person who is sick and other household members. Outside your home: Put 6 feet of distance between yourself and people who don't live in your household. Cover your mouth and nose with a mask when around others Masks help prevent you from getting or spreading the virus. You could spread COVID-19 to others even if you do not feel sick. Everyone should wear a mask in public settings and when around people who don't live in your household, especially when other social distancing measures are difficult to maintain. Masks should not be placed on young children under age 2, anyone who has trouble breathing, or is unconscious, incapacitated or otherwise unable to remove the mask without assistance. Cover coughs and sneezes Always cover your mouth and nose with a tissue when you cough or sneeze or use the inside of your elbow and do not spit. Throw used tissues in the trash. Immediately wash your hands with soap and water for at least 20 seconds. Clean and disinfect Clean AND disinfect frequently touched surfaces daily. This includes tables, doorknobs, light switches, countertops, handles, desks, phones, keyboards, toilets, faucets, and sinks. Monitor Your Health Daily Be alert for symptoms. Watch for fever, cough, shortness of breath, or other symptoms of COVID-19. Especially important if you are running essential errands, going into the office or workplace, and in settings where it may be difficult to keep a physical distance of 6 feet. Take your temperature if symptoms develop. Don't take your temperature within 30 minutes of exercising or after taking medications that could lower your temperature, like acetaminophen. Travel Skip events that put you in contact with large groups of people (sporting events, concerts, X[employer] naik, etc). Avoid unnecessary domestic and international travel, including travel through large international airports. If traveling, wipe down your airplane seat (and tray) with a disinfecting wipe. Office Visits If you have a fever, cough or shortness of breath, or are otherwise concerned you have COVID-19, we ask that you do not come to any [facility] facility without calling your primary care physician or speaking to a provider using a virtual visit using [facility] [employer]. You will be evaluated to determine if you require being seen in person or if you meet CDC guidelines for testing for COVID-19 based on symptoms, travel and exposures. If you meet criteria for testing, your [employer] provider or primary care physician will advise how to proceed with testing Immunosuppression There is no need to stop your immunosuppressive medications preemptively. If you become sick, please let your doctor know, and discuss with them prior to stopping any medications. At this point, we have no knowledge that patients on immunosuppressive medications are at higher risk of COVID-19 infection. People with weakened immune systems are at higher risk of getting severely sick from SARS-CoV-2, the virus that causes COVID-19. They may also remain infectious for a longer period of time than others with COVID-19, but we cannot confirm this until we learn more about this new virus. Steps You Can Take to Protect Your Health Continue your regular treatment plan. Don't stop any medications or treatments without talking to your doctor. Discuss any concerns about your treatment with your doctor. Keep your regularly scheduled medical appointments. Talk to your doctor about steps they are taking to reduce risk of exposure to COVID-19 in the office. Use telehealth services whenever possible if recommended by your doctor. Ensure that you are getting necessary tests prescribed by your doctor. Seek urgent medical care if you are feeling unwell. Talk to your doctor, insurer, and pharmacist about getting an emergency supply of prescription medications. Make sure you have at least 30 days of prescription medications, weoz-cfe-uymzyln medicines, and supplies on hand in case you need or want to stay home for several weeks. Talk to your doctor or pharmacist about ways to receive your medications by mail. Take steps to care for your emotional health. Fear and anxiety about COVID-19 can be overwhelming and cause strong emotions. It is natural to feel concerned or stressed about COVID-19. - Learn more about stress and coping with anxiety here. Call your healthcare provider if stress gets in the way of your daily activities for several days in a row. If you are feeling overwhelmed with emotions like sadness, depression, or anxiety, or feel like you want to harm yourself or others: ; Call 911 if you feel like you want to harm yourself or others ; Visit the Disaster Distress Helpline call , [place] [address] ; Visit the National Domestic Violence Hotline or call and TTY Visit the National Suicide Prevention Lifeline or call and TTY or text Most importantly, don't panic. By following basic prevention measures such as hand hygiene and cover your cough, you are helping to keep yourself and others healthy. Additional information can be found on the CDC and [facility] web sites: https://www.cdc.gov/coronavirus/ 2019-nCoV/index.html https://[facility].org/benita navirus Beginning Home Isolation Isolation is used to separate people infected with SARS-CoV-2, the virus that causes COVID-19, from people who are not infected. People who are in isolation should stay home until it s safe for them to be around others. In the home, anyone sick or infected should separate themselves from others by staying in a specific sick room or area and using a separate bathroom (if available). Isolation or Quarantine: What's the difference? Quarantine keeps someone who might have been exposed to the virus away from others. Isolation keeps someone who is infected with the virus away from others, even in their home. Who needs to isolate People who have COVID-19 People who have symptoms of COVID-19 and are able to recover at home People who have no symptoms (are asymptomatic) but have tested positive for infection with SARS-CoV-2 Steps to take Stay home except to get medical care Monitor your symptoms. Stay in a separate room from other household members, if possible Use a separate bathroom, if possible Avoid contact with other members of the household and pets Don t share personal household items, like cups, towels, and utensils Wear a mask when around other people, if you are able to When to seek emergency medical attention Look for emergency warning signs* for COVID-19. If someone is showing any of these signs, seek emergency medical care immediately: Trouble breathing Persistent pain or pressure in the chest New confusion Inability to wake or stay awake Bluish lips or face *This list is not all possible symptoms. Please call your medical provider for any other symptoms that are severe or concerning to you. Call 911 or call ahead to your local emergency facility: Notify the twisting frame operator that you are seeking care for someone who has or may have COVID-19. Ending Home Isolation - When you can be around others after you had or likely had COVID-19 When you can be around others after you had or likely had COVID-19 If You Test Positive for COVID-19 (Isolation) Everyone, regardless of vaccination status: 1. Stay home for 5 days. Note: Day 0 is your first day of symptoms or the date of collection of a positive viral test if no symptoms. Day 1 is the first full day after symptoms developed or test specimen was collected. 2. If you have no symptoms or your symptoms are resolving after 5 days, you can leave your house. 3. Continue to wear a mask around others for 5 additional days. If you have a fever, continue to stay home until your fever resolves, even if it is longer than 5 days. If You Were Exposed to Someone with COVID-19 (Quarantine) If you: 1. Have been boosted OR 2. Completed the primary series of Pfizer or Moderna vaccine within the last 6 months OR 3. Completed the primary series of J&J vaccine within the last 2 months THEN: 1. Wear a mask around others for 10 days. 2. Test on day 5, if possible. If you develop symptoms get a test and stay home. If You Were Exposed to Someone with COVID-19 (Quarantine) If you: 1. Completed the primary series of Pfizer or Moderna vaccine over 6 months ago and are not boosted OR 2. Completed the primary series of J&J over 2 months ago and are not boosted OR 3. Are unvaccinated THEN: 1. Stay home for 5 days. After that continue to wear a mask around others for 5 additional days. 2. If you can't quarantine you must wear a mask for 10 days. 3. Test on day 5 if possible. If you develop symptoms get a test and stay home. I had COVID-19 or I tested positive for COVID-19 and I have a weakened immune system If you have a weakened immune system (immunocompromised) due to a health condition or medication, you might need to stay home and isolate longer than 10 days. Talk to your healthcare provider for more information. Your doctor may work with an infectious disease expert at your local health department to determine when you can be around others. How to Manage Common Symptoms Associated with COVID for Adults Fever- Fever is a temperature over 100.4 F and can occur when the body is fighting an infection. To help treat a fever: Drink plenty of fluids and stay well hydrated. Eat small amounts of easy to digest food. Rest. Your body needs rest to recover, but getting up and moving around the house frequently is a good idea. You should try to continue doing your normal daily activities (bathing, toileting, grooming, cooking), though you will probably feel tired, and need to rest often. Avoid any heavy activity or exercise, as this will increase your body temperature. Dress in light clothing and stay covered in a light sheet. Keep the room temperature cool. Take a slightly warm (not cold or cool) bath, or apply damp washcloths to the forehead and wrists. Cough- Cough is a common symptom associated with COVID and can be bothersome. To help treat a cough: Stay well hydrated. Try warm water or tea with lemon and/or honey to help soothe the cough. Use a humidifier to add moisture to the air. Try a product with menthol, like a cough drop or a rub for your chest such as Vicks, which can help reduce cough. Try cough drops. Avoid smoking and other strong odors or perfumes. Try breathing exercises to keep your lungs open and clear. Take a big deep breath through your nose and hold for 5 seconds before slowly releasing. Repeat frequently, while you are awake. Congestion- Runny nose or nasal congestion can occur with COVID. Treatment can help relieve symptoms: Try OTC nasal saline spray, or nasal saline rinse to relieve mucus congestion. Nasal strips can help keep nasal passages open, to increase airflow. Elevating your head with an extra pillow in bed can help reduce congestion. Using a humidifier can increase moisture in the air, and make breathing easier. Sore Throat- Another common symptom with COVID, can be managed at home by: Stay well hydrated. Gargle with salt water mix teaspoon salt with 1 cup of warm water and gargle. This helps to loosen mucus in the back of the throat and may reduce discomfort. Try ice chips, popsicles or lozenges to soothe the throat. Nausea/Vomiting/Diarrhea- These are common symptoms, and staying hydrated is most important. If you are nauseous or vomiting, start with small sips of water every 10-15 minutes and increase as tolerated. You can try sucking an ice cube too. If tolerating, you can try pedialyte or Gatorade, or flat sprite or shira-virgil. Start slowly and increase as you are able to. Instead of meals, try smaller, more frequent snacks. Try eating bland foods like crackers, toast, rice, and applesauce. Avoid spicy, greasy or fried foods and dairy containing foods. Even if you aren't feeling hungry due to lack of smell or taste, it is important to try to take in some food when you are able. After drinking and eating, rest in an upright position for up to two hours as needed to help decrease nauseous feelings. Try closing your eyes, avoid moving and watching TV. Avoid strong odors that can make you feel more nauseated. When to seek emergency medical attention Look for emergency warning signs for COVID-19. If having any of these symptoms, seek emergency medical care immediately: Trouble breathing Persistent pain or pressure in the chest New confusion Inability to wake or stay awake Bluish lips or face *This list is not all possible symptoms. Please call your medical provider for any other symptoms that are severe or concerning to you. documented in this encounter [facility] 12-29-2021 History of Presen t illness Narrative Telemedicine Visit - Distance Health Virtual Visit Note Patient seen on [employer] platform. Location of patient: [place] History of Present Illness Susan Maurice is a 36 year old year old male who presents for the past 2 weeks with symptoms that are:waxing and waning. Symptoms include: Positive for Nasal congestion, Negative for Fever, Chills/Sweats, Cough, Hemoptysis, SOB, EVANS, Wheezing, PND, Rhinorrhea, Face pain/pressure, Headache, Teeth pain , Otalgia, Sore throat, Fatigue, Nausea, Emesis and Diarrhea Has history of seasonal allergies. Contributes nasal congestion to seasonal allergies Treated for sinusitis 12/04/2021 with Augmentin and Flonase returned from a trip 2 days ago and started symptoms on the day she returned from her trip. Concerned that he is exposed and seeking advise Was seen at [email or web address] [place] yesterday and tested for COVID and it was negative Tobacco use: No Second hand smoke exposure: No Recent exposure to strep:No Sick contacts: no Recent travel: no OTC meds/remedies that patient has tried: Flonase. PAST MEDICAL HISTORY Diagnosis Date ADD (attention deficit disorder) Doing fine with coffee Teeth grinding Hs mouth guard PAST SURGICAL HISTORY Procedure Laterality Date PAST SURGICAL HISTORY OF broken leg PAST SURGICAL HISTORY OF surgery for broken thumb FAMILY HISTORY Problem Relation Age of Onset Diabetes Father type 2 Skin Cancer Father Not sure type Diabetes Maternal Grandmother type 2 other (hypercholesterolemia) Mother Social History Tobacco Use Smoking status: Never Smoker Smokeless tobacco: Never Used Substance Use Topics Alcohol use: Not Currently Comment: bottle of wine every few months Drug use: No Current Outpatient Medications Medication Sig melatonin 10 mg tab Take 10 mg by mouth daily at bedtime. albuterol HFA (PROVENTIL HFA) 90 mcg/actuation inhaler Inhale 2 Puffs as instructed every 4 hours as needed for wheezing/shortness of breath. fexofenadine (DORIS ALLERGY) 60 mg tablet Take 1 tablet by mouth once daily. No current facility-administered medications for this visit. ALLERGIES Allergen Reactions Shellfish Derived Diarrhea, GI Upset, Shortness of Breath Video Exam (Examination performed via Video enabled technology) General appearance: Alert, oriented, pleasant, in NAD :Yes Ill appearing :No Lethargic appearing :No Eyes: Sclera clear :Yes Conjunctiva without erythema :Yes Respiratory distress :No Coughing noted :No Audible wheezing noted :No ASSESSMENT/PLAN: 1. Nasal congestion 2. Exposure to confirmed case of COVID-19 3. Advice given about COVID-19 virus infection - hx of seasonal allergies- on nasal steriod, treated for sinusitis on 12/04/2021 with augmentin, continues nasal congestion - Asymptomatic for covid - COVID PCR completed at [facility] yesterday- negative - Reviewed CDC guidelines - Advise mask wearing for 10-14 days from date of exposure - Retest if become symptomatic for COVID - Red flags discussed for need for in person care - All questions answered Julian Hernandez APRN.CNP If you let us know who your primary care provider is, we will send them a notification of today s visit through our electronic medical records system. Since not all providers have access to our notifications, we strongly encourage you to share the following record of today s visit with your primary care provider at your next visit. This will help in providing you the best care. If you do not have an established Primary Care physician and would like to continue care with a [facility] Virtual Primary Care physician, please ask your provider to place a Establish Primary Care order. Use Arimaz to manage your care, wherever you are, 03/03, on your mobile device or computer. [employer] connects you to [employer] so you can access all your health information in one place and also schedule and request virtual appointments with primary care providers. documented in this encounter [facility] 12-28-2021 History of Presen t illness Narrative Patient presents with: Covid19 Concern: possible exposure x1 day, stuffy nose x1 week HPI: Feeling stuffy nose for a couple weeks. His tested positive for COVID today; her symptoms started yesterday after returning from a trip out of town. Positive symptoms: nasal congestion since sinusitis Negative symptoms: Cough, Shortness of breath, Sore throat, Rhinorrhea, Fever, Body Aches, Malaise, Fatigue, Headache, Nausea, Vomiting, Diarrhea, loss of taste/smell, OTC: holding claritin because of sinus infection a month ago. Uses flonase. PAST MEDICAL HISTORY Diagnosis Date ADD (attention deficit disorder) Doing fine with coffee Teeth grinding Hs mouth guard MEDICATIONS: Current Outpatient Medications Medication Sig melatonin 10 mg tab Take 10 mg by mouth daily at bedtime. albuterol HFA (PROVENTIL HFA) 90 mcg/actuation inhaler Inhale 2 Puffs as instructed every 4 hours as needed for wheezing/shortness of breath. fexofenadine (DORIS ALLERGY) 60 mg tablet Take 1 tablet by mouth once daily. triamcinolone acetonide (NASACORT) 55 mcg nasal inhaler Use 2 Sprays in the nose once daily. No current facility-administered medications for this visit. ALLERGIES: ALLERGIES Allergen Reactions Shellfish Derived Diarrhea, GI Upset, Shortness of Breath VITALS: BP 128/82 Pulse 77 Temp 36.6 C (97.8 F) Resp 20 Wt 87.6 kg (193 lb 3.2 oz) SpO2 98% BMI 26.57 kg/m PHYSICAL EXAM: GEN: Pleasant, in no acute distress. HEENT: PERRL, EOMI, conjunctiva clear Sinuses: non-tender frontal sinus, non-tender maxillary sinuses Throat: moist mucous membranes, no erythema, no exudate Neck: supple, no thyromegaly, no lymphadenopathy HEART: regular rate and rhythm, no murmurs LUNGS: clear to auscultation, no wheezes or crackles, no increased WOB ASSESSMENT/PLAN: 1. Exposure to confirmed case of COVID-19 - ICD9: V01.79, ICD10: Z20.822 (primary diagnosis) 2. Nasal congestion - ICD9: 478.19, ICD10: R09.81 - ASYMPTOMATIC ELECTIVE COVID-19 He is asymptomatic and fully vaccinated. He should continue masking and social distance for 10 days and retest 5 days from last exposure. If positive his 5 days home isolation would start from his positive test if since he is asymptomatic. Medhat Smith MD documented in this encounter [facility] 12-28-2021 Miscellaneous Notes Noted, agree. Patient calling did home COVID test and was positive. His employer will not take a home test, requires PCR test to be done. Patient said he has had stuffy nose symptoms all week. Advised to go to [facility] for evaluation and PCR test if indicated. documented in this encounter [facility] 08-27-2020 History of Past i llness Narrative Problem Noted Date Diagnosed Date Resolved Date Trigger finger 08/27/2020 11/06/2023 Overview: Left middle finger. documented as of this encounter (statuses as of 11/12/2023) [facility] Diagnosis Exposure to confirmed case of COVID-19- Primary Nasal congestion Other diseases of nasal cavity and sinuses [facility] Diagnosis Nasal congestion- Primary Other diseases of nasal cavity and sinuses Exposure to confirmed case of COVID-19 Advice given about COVID-19 virus infection [facility] Diagnosis Exposure to COVID-19 virus- Primary [facility] Diagnosis Routine medical exam- Primary Routine general medical examination at a health care facility Encounter for immunization Need for other specified prophylactic vaccination against single bacterial disease Anxiety and depression Dysthymic disorder Environmental allergies Other allergy, other than to medicinal agents Encounter for screening for diabetes mellitus Screening for diabetes mellitus Screening for lipid disorders [facility] Diagnosis Encounter for immunization- Primary Need for other specified prophylactic vaccination against single bacterial disease [facility] Diagnosis Screening, lipid- Primary Screening for lipoid disorders Encounter for screening for diabetes mellitus Screening for diabetes mellitus Encounter for therapeutic drug monitoring documented in this encounter [facility] note* Diagnosis Laceration of left little finger without foreign body without damage to nail, initial encounter- Primary [facility] Diagnosis Routine medical exam- Primary Routine general medical examination at a health care facility Encounter for immunization Need for other specified prophylactic vaccination against single bacterial disease Encounter for screening for diabetes mellitus Screening for diabetes mellitus Screening, lipid Screening for lipoid disorders Environmental allergies Other allergy, other than to medicinal agents Sore throat Acute pharyngitis documented in this encounter [facility] noteNo assessment information availableWC[facility] Work Phone: Evaluation note* Diagnosis Tongue swelling- Primary Swelling, mass, or lump in head and neck documented in this encounter [facility] note* Diagnosis Encounter for screening for diabetes mellitus- Primary Screening for diabetes mellitus Screening for lipid disorders Routine physical examination Routine general medical examination at a health care facility documented in this encounter [facility] note* Diagnosis Wellness examination- Primary Screening for depression Encounter for screening examination for other mental health and behavioral disorders documented in this encounter [facility] note* Diagnosis Acute non-recurrent pansinusitis- Primary documented in this encounter [facility] Discharge instructions* Attachments The following attachments cannot be sent through Care Everywhere. * Lacerations: Open (Khmer) [facility] [place] (narrative)* Consultation (Routine) - Pending Review Specialty Diagnoses / Procedures Referred By Aleks mcclellan Referred To Contact Occupational Medicine Diagnoses Laceration of left little finger without foreign body without damage to nail, initial encounter Jael Gonzalez MD [address] [place] [address] Chari Parker, NOEL-AUSTIN [address] [place] [id number] Referral ID Status Reason Start Date Expiration Date V isits Requested Visits Authorized [id number] Pending Review 11/17/2022 12/12/2023 1 1 T [facility] Concerns Infection Onset Date Last Indicated Resolved Time COVID-19 Rule-Out 12/28/2021 12/28/2021 Advance Directives No Advanced Directives Records FoundDocuments on File Type Date Recorded 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 Advance Directives/Living Will 11/17/2022 8:47 AM Advance Directive Response Recorded Date/ Time Living Will No [place] [address], 202 3 8:29pm 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 the event this information is protected by the Federal Confidentiality of Alcohol and Drug Abuse Patient Records regulations: The Federal rules restrict any use of the information to criminally investigate or prosecute any alcohol or drug abuse patient.[facility] the event this information is protected by the Federal Confidentiality of Alcohol and Drug Abuse Patient Records regulations: The Federal rules restrict any use of the information to criminally investigate or prosecute any alcohol or drug abuse patient.[facility] the event this information is protected by the Federal Confidentiality of Alcohol and Drug Abuse Patient Records regulations: The Federal rules restrict any use of the information to criminally investigate or prosecute any alcohol or drug abuse patient.[facility] the event this information is protected by the Federal Confidentiality of Alcohol and Drug Abuse Patient Records regulations: The Federal rules restrict any use of the information to criminally investigate or prosecute any alcohol or drug abuse patient.[facility]In the event this information is protected by the Federal Confidentiality of Alcohol and Drug Abuse Patient Records regulations: The Federal rules restrict any use of the information to criminally investigate or prosecute any alcohol or drug abuse patient.[facility] the event this information is protected by the Federal Confidentiality of Alcohol and Drug Abuse Patient Records regulations: The Federal rules restrict any use of the information to criminally investigate or prosecute any alcohol or drug abuse patient.[facility] the event this information is protected by the Federal Confidentiality of Alcohol and Drug Abuse Patient Records regulations: The Federal rules restrict any use of the information to criminally investigate or prosecute any alcohol or drug abuse patient.[facility] the event this information is protected by the Federal Confidentiality of Alcohol and Drug Abuse Patient Records regulations: The Federal rules restrict any use of the information to criminally investigate or prosecute any alcohol or drug abuse patient.[facility] the event this information is protected by the Federal Confidentiality of Alcohol and Drug Abuse Patient Records regulations: The Federal rules restrict any use of the information to criminally investigate or prosecute any alcohol or drug abuse patient.[facility] HospitalIn the event this information is protected by the Federal Confidentiality of Alcohol and Drug Abuse Patient Records regulations: The Federal rules restrict any use of the information to criminally investigate or prosecute any alcohol or drug abuse patient.[facility]In the event this information is protected by the Federal Confidentiality of Alcohol and Drug Abuse Patient Records regulations: The Federal rules restrict any use of the information to criminally investigate or prosecute any alcohol or drug abuse patient.[facility] HospitalIn the event this information is protected by the Federal Confidentiality of Alcohol and Drug Abuse Patient Records regulations: The Federal rules restrict any use of the information to criminally investigate or prosecute any alcohol or drug abuse patient.[facility] HospitalIn the event this information is protected by the Federal Confidentiality of Alcohol and Drug Abuse Patient Records regulations: The Federal rules restrict any use of the information to criminally investigate or prosecute any alcohol or drug abuse patient.[facility]In the event this information is protected by the Federal Confidentiality of Alcohol and Drug Abuse Patient Records regulations: The Federal rules restrict any use of the information to criminally investigate or prosecute any alcohol or drug abuse patient.[facility] HospitalIn the event this information is protected by the Federal Confidentiality of Alcohol and Drug Abuse Patient Records regulations: The Federal rules restrict any use of the information to criminally investigate or prosecute any alcohol or drug abuse patient.[facility] HospitalIn the event this information is protected by the Federal Confidentiality of Alcohol and Drug Abuse Patient Records regulations: The Federal rules restrict any use of the information to criminally investigate or prosecute any alcohol or drug abuse patient.[facility] HospitalIn the event this information is protected by the Federal Confidentiality of Alcohol and Drug Abuse Patient Records regulations: The Federal rules restrict any use of the information to criminally investigate or prosecute any alcohol or drug abuse patient.[facility] HospitalIn the event this information is protected by the Federal Confidentiality of Alcohol and Drug Abuse Patient Records regulations: The Federal rules restrict any use of the information to criminally investigate or prosecute any alcohol or drug abuse patient.[facility] HospitalIn the event this information is protected by the Federal Confidentiality of Alcohol and Drug Abuse Patient Records regulations: The Federal rules restrict any use of the information to criminally investigate or prosecute any alcohol or drug abuse patient.[facility] HospitalIn the event this information is protected by the Federal Confidentiality of Alcohol and Drug Abuse Patient Records regulations: The Federal rules restrict any use of the information to criminally investigate or prosecute any alcohol or drug abuse patient.[facility] HospitalIn the event this information is protected by the Federal Confidentiality of Alcohol and Drug Abuse Patient Records regulations: The Federal rules restrict any use of the information to criminally investigate or prosecute any alcohol or drug abuse patient.[facility] Reason for Visit (unrecogniz ed section and content) Reason Comments Patient Update Reason Comments Covid19 Concern possible exposure x1 day, stuffy nose x1 week Reason Comments Covid19 Concern Reason Comments Physical Reason Comments Imm/Inj Reason Comments Orders Reason Comments Laceration Reason Comments Yearly Exam Reason Comments worsening symptoms Reason Comments Patient Update Medication Problem Reason Comments Patient Question regarding dairy/lact ose intolerance and urinary frequency. Reason Comments Patient Question Reason Comments Question Reason Comments Sinus Problem Care Teams (unrecognized sec tion and content) Manager Culinary Relationship Specialty Start Date End Date Melo Christian MD [address] [facility] [place] [address] PCP - General Internal Medicine 05/03/19 Manager Culinary Relationship Specialty Start Date End Date Melo Christian MD [address] [place] [address], [place] [address] PCP - General Internal Medicine 05/03/19 Manager Culinary Relationship Specialty Start Date End Date Melo Christian MD [address] [place] [address], [place] [address] PCP - General Internal Medicine 05/03/19 Manager Culinary Relationship Specialty Start Date End Date Melo Christian MD [address] [place] [address], [place] [address] PCP - General Internal Medicine 05/03/19 Manager Culinary Relationship Specialty Start Date End Date Melo Christian MD [address] [place] [address], [place] [address] PCP - General Internal Medicine 05/03/19 Manager Culinary Relationship Specialty Start Date End Date Melo Christian MD [address] [place] [address], [place] [address] PCP - General Internal Medicine 05/03/19 Manager Culinary Relationship Specialty Start Date End Date Melo Christian MD [address] [place] [address], [place] [address] PCP - General Internal Medicine 05/03/19 Manager Culinary Relationship Specialty Start Date End Date Melo Christian MD [address] [place] [address], [place] [address] PCP - General Internal Medicine 11/17/22 Manager Culinary Relationship Specialty Start Date End Date Melo Christian MD [address] [place], [place] [id number] PCP - General Internal Medicine 05/03/19 Manager Culinary Relationship Specialty Start Date End Date Melo Christian MD [address] [place], [place] [address] PCP - General Internal Medicine 05/03/19 Team Status: Active Member Role Status Dates Adrianna Ascencio PRODUCTION LINE ASSEMBLER, PRODUCTION LINE ASSEMBLER-C Primary Care Provider Active Team Status: Inactive Member Role Status Dates Adrianna Ascencio PRODUCTION LINE ASSEMBLER, PRODUCTION LINE ASSEMBLER-C Primary Care Provider Active Dr. Aris Doty , DO Emergency Provider Active Manager Culinary Relationship Specialty Start Date End Date Melo Christian MD [address] [place] [address] PCP - General Internal Medicine 05/03/19 Manager Culinary Relationship Specialty Start Date End Date Melo Christian MD [address] [place] [address] PCP - General Internal Medicine 05/03/19 Manager Culinary Relationship Specialty Start Date End Date Melo Christian MD [address] [place] [address] PCP - General Internal Medicine 05/03/19 Manager Culinary Relationship Specialty Start Date End Date Melo Christian MD [address] [place], [place] [id number] PCP - General Internal Medicine 05/03/19 Manager Culinary Relationship Specialty Start Date End Date Melo Christian MD [address] [place] [address] PCP - General Internal Medicine 05/03/19 Manager Culinary Relationship Specialty Start Date End Date Melo Christian MD [address] [place], [place] [address] PCP - General Internal Medicine 05/03/19 Manager Culinary Relationship Specialty Start Date End Date Melo Christian MD [address] [place], [place] [id number] PCP - General Internal Medicine 05/03/19 Adrianna Ascencio, BUDGET CONTROLLER.YARN TEXTURING MACHINE OPERATOR [address] [place] [address] Director Data Processing Internal Medicine 07/19/24 Marcelle Bah BUDGET CONTROLLER.DIPLOMATIC COURIER [address] [place] [address] Director Data Processing Internal Medicine 07/19/24 Manager Culinary Relationship Specialty Start Date End Date Melo Christian MD [address] [place], [place] [id number] PCP - General Internal Medicine 05/03/19 Marcelle Bah, BUDGET CONTROLLER.DIPLOMATIC COURIER [address] [place] [address] Director Data Processing Internal Medicine 11/02/24 Adrianna Ascencio, BUDGET CONTROLLER.YARN TEXTURING MACHINE OPERATOR [address] [place] [address] [facility] Internal Medicine 12/29/24 Scheduled Active and Recently Administ ered Medications (unrecognized section and content) Medication Order 11/15/2022 11/16/2022 11/17/2022 Bacitracin ointment 1 Application (COMPLETED) 1 Application, Topical, ONCE, 1 dose, On 11/17/22 at 0830, Apply to left 5th digit 0835 (Given - Provid er: Jacob Florez RN) Ibuprofen (MOTRIN) tablet 800 mg (COMPLETED) 800 mg, Oral, ONCE, 1 dose, On 11/17/22 at 0800 0835 (Given - Provid er: Jacob Florez RN) (unrecognized sect ion and content) No Status Records FoundNo Status Records FoundNo Status Records Found INFORMATION SOURCE (unrecogn ized section and content) DATE CREATED AUTHOR 11/18/2022 [facility] DATE CREATED AUTHOR AUTHOR'S ORGANIZ ATION 04/05/2023 [facility] DATE CREATED AUTHOR AUTHOR'S ORGANIZ ATION 01/23/2025 [facility] Goals (unrecognized section and content) Goals may be documented in a n alternate section FOR RECORDS PERTAINING TO PATIENTS WHO ARE OR HAVE BEEN ENROLLED IN A CHEMICAL DEPENDENCY/SUBSTANCEABUSE PROGRAM, SOME INFORMATION MAY BE OMITTED. This clinical summary was aggregated from multiple sources. Caution should be exercised in using it in the provision of clinical care. This summary normalizes information from multiple sources, and as a consequence, information in this document may materially change the coding, format and clinical context of patient data. In addition, data may be omitted in some cases. CLINICAL DECISIONS SHOULD BE BASED ON THE PRIMARY CLINICAL RECORDS. [employer] provides no warranty or guarantee of the accuracy or completeness of information in this document.
--- NOTE | 2025-02-26 04:52 | EX.ED.DYSGE1 ---
HPI History of Present Illness Chief Complaint: Ear Problem Narrative Narrative: Chief complaint and HPI: Right ear tinnitus and decreased hearing. 39-year-old male with past medical history of right-sided TMJ presents for evaluation of right ear tinnitus and decreased hearing. Patient states that his mouthguard has a crack in the mouthpiece on the right side. States at baseline he has a bench grinder when he sleeps which leads to TMJ. Patient states he went to bed at 9 PM and when he woke up at 3 AM he noticed ringing in his right ear and decreased hearing. Also endorses some paresthesias in the right ear. He states that he is having some jaw pain on the right which is similar to his TMJ. He has never had tendinitis or decreased hearing with his TMJ. He denies any fever, chills, headache, vision changes, URI symptoms, shortness of breath, chest pain, abdominal pain, nausea, vomiting, neurological deficit, weakness. Denies any pain in the ear. Review of systems: See HPI Medications: As listed on the chart Allergies: As listed on the chart PFSH: Per chart Vital signs: As listed on the chart. Reviewed. Physical exam: Gen: A&O x3, NAD Head: Normocephalic, atraumatic Eyes: No sclera icterus, conjunctiva clear, PERRLA, EOMI ENT: Patient had earwax impacted in the EAC on the right however this was easily removable, TMs clear BL, moist mucous membranes, posterior oropharynx unremarkable, uvula midline, tonsils not enlarged, no tonsillar exudates, no facial tenderness, no facial asymmetry Neck: Trachea midline, No JVD, Full ROM, No meningismus, no lymphadenopathy, no carotid bruit CV: RRR, no murmurs, no peripheral edema Resp: Lungs CTA BL, no w/r/c GI: Abd soft, non-distended, non-tender, no r/r/g Musc: Full ROM, no deformity, strength +5/5 in all extremities, no pronator drift, no ataxia Skin: Warm, dry, intact Neuro: Alert, oriented, grossly intact, sensation intact, no aphasia, no dysarthria Psych: Cooperative, appropriate mood and affect PFSH PFSH Medical History no medical history Home Medications ?Medication ?Instructions ?Recorded ?Last Taken ?Type lidocaine HCl 2 % mucosal solution 10 ml mucous membrane Q8H PRN pain 03/31/23 Unknown Rx (Lidocaine Viscous) #100 mL prednisone 20 mg tablet 60 mg (3 x 20 mg) PO DAILY 4 days 02/26/25 Unknown Rx #12 TABLETS Allergy/AdvReac Type Severity Reaction Status Date / Time No Known Allergies Allergy Verified 02/26/25 04:25 Surgical History no surgical history Social History Smoking Status: Never smoker EXAM Physical Exam Const Vital Signs: 02/26/25 04:25 02/26/25 06:45 Temperature 98.2 F 97.6 F L Temperature Source Oral Pulse Rate 75 83 Respiratory Rate 16 16 Blood Pressure 137/72 H 127/76 H Blood Pressure Mean 93 93 Pulse Ox 99 98 MDM MDM MDM Narrative Medical decision making narrative: 39-year-old male with past medical history of right-sided TMJ presents for evaluation of right ear tinnitus and decreased hearing. Patient was last known normal was 9 PM when he went to bed. Woke up this morning at 3 AM with ringing in the right ear and decreased hearing. Also endorses pain in the jaw which is similar to his typical TMJ and paresthesias in the right ear. See physical exam findings. Differential diagnosis includes but is not limited to TMJ, intracranial abnormality. Not consistent with M?ni?re's disease, labyrinthitis. He denies NSAID use or other medications. Denies any trauma. Basic labs will be obtained with CT head and CTA head and neck. Cyclobenzaprine ordered for TMJ. CBC without leukocytosis or anemia. BMP unremarkable. CT of the brain shows no acute intracranial abnormality. CTA of the head and neck shows no acute abnormality. On reevaluation, patient states that the pain in his jaw is improving with the cyclobenzaprine however he is still endorsing decreased hearing, tinnitus, paresthesias of the right ear. Given that patient is still endorsing decreased hearing and tinnitus despite his TMJ pain improving we will perform the Rinne and Liao test. Patient has conduction hearing loss on the right, negative Rinne test. Normal on the left. He has a normal Liao test. Given findings, ENT was consulted and they spoke with Dr. Sesay. Will start patient on 60 mg prednisone x 5 days. Follow-up in the office for hearing test. No further imaging needed at this time such as MRI brain. Patient was updated of all the results and confirmed understand the plan. Patient stable to discharge home. Return precautions explained. Impression: 1. Right ear tinnitus 2. Decreased hearing in the right ear consistent with conduction hearing loss on exam 3. Right-sided TMJ Lab Data Labs: Laboratory Results - last 24 hr 02/26/25 04:50 WBC 8.1 RBC 4.99 Hgb 14.9 Hct 43.8 MCV 87.8 MCH 29.9 MCHC 34.0 RDW Std Deviation 40.8 RDW Coeff of Ember 12.6 Plt Count 282 MPV 9.6 Immature Gran % (Auto) 0.600 Neut % (Auto) 62.7 Lymph % (Auto) 26.2 [place] % (Auto) 8.7 Eos % (Auto) 1.4 Baso % (Auto) 0.4 Absolute Neuts (auto) 5.1 Absolute Lymphs (auto) 2.11 Nucleated RBC % 0 Sodium 139 Potassium 4.4 Chloride 105 Carbon Dioxide 22.9 Anion Gap 11 BUN 22 H Creatinine 0.75 Estim Creat Clear Calc 154.55 Est GFR (MDRD) Non-Af 118 BUN/Creatinine Ratio 29.3 H Glucose 118 H Calcium 9.7 Radiography Diagnostic Testing: Clinical Impression(s) from Imaging Studies Brain CT 02/26/25 05:23 IMPRESSION: No intracranial findings Reading Location: [place] [address] Head/Neck CTA 02/26/25 05:23 IMPRESSION: No cervical or intracranial arterial pathology. Patent dural venous sinuses. Reading Location: [place] [address] Discharge Plan Triage Chief Complaint: Ear Problem ED Provider: Christian Ford Dx/Rx/DC Orders Clinical Impression: Tinnitus Instructions: Tinnitus (Ringing in the Ears) Prescriptions: New prednisone 20 mg tablet 60 mg PO DAILY 4 Days Qty: 12 0RF Rx Instructions: Start prescription on 02/27/2025 No Action lidocaine HCl [Lidocaine Viscous] 2 % solution 10 ml mucous membrane Q8H PRN (Reason: pain) Qty: 100 0RF Primary Care Provider: Chana Christian Referrals: Sumeet Sesay MD [Med Staff - Active Staff] - 3-5 Days Chana Christian MD [Primary Care Provider] - 3-5 Days Activity Restrictions/Additional Instructions: Follow-up with primary care physician and ENT for hearing test. Call to make an appointment. Take all of your prednisone. You received your first dose here in the emergency department, take next dose tomorrow morning. Return back to the ED if symptoms change or worsen. Print Language: [place] Citizen Disposition Disposition: Home, Self Care
[2025-02-26 05:00] LABS: Hematocrit 43.8 % (40-54); Hemoglobin 14.9 g/dL (13.0-16.5); Immature Granulocytes Count 0.050 X10^3/uL (0.0-0.0); Mean Corp Hgb Conc 34.0 g/dL (32-36); Mean Corpuscular Volume 87.8 fL (80-94); Mean Platelet Vol. 9.6 fl (6.2-12.0); NRBC Flagged by Analyzer 0 % (0-5); Platelet Count 282 K/mm3 (150-450); RBC Distribution Width CV 12.6 % (11.6-14.6); RBC Distribution Width SD 40.8 fl (35.1-43.9); Red Blood Count 4.99 M/mm3 (4.6-6.2); White Blood Count 8.1 K/mm3 (4.4-11.0)
[2025-02-26 05:23] LABS: Anion Gap 11 (5-15); BUN 22 mg/dL (4-19); BUN/Creat Ratio 29.3 RATIO (10-20); Calcium,Total 9.7 mg/dL (7.6-11.0); Carbon Dioxide 22.9 mmol/L (21.0-32.0); Chloride 105 mmol/L (98-108); Estimated Creatinine Clearance 154.55 ml/min (50-250); Glucose 118 mg/dL (70-99); Potassium 4.4 mmol/L (3.3-5.1)
--- NOTE | 2025-02-26 05:23 | CT_ITS ---
PROCEDURE: CTA HEAD AND NECK W/ CONTRAST 02/26/2025 REASON FOR EXAM: RIGHT EAR TINNITUS, DECREASED HEARING TECHNIQUE: CTA HEAD AND NECK W/ CONTRAST Multiplanar Sagittal and Coronal images were obtained. One or more dose reduction techniques were used (e.g., Automated exposure control, adjustment of the mA and/or kV according to patient size, use of iterative reconstruction technique). RADIATION DOSE SUMMARY: CTDlvol: 100 mGy DLP: 1709 mGycm COMPARISON: Head CT same day FINDINGS: Lung apices are clear. Unremarkable superior mediastinum. Neck soft tissues show no acute findings. Stable orbits. No abnormal brain enhancement. Unremarkable thoracic arch. The common carotid arteries, extracranial internal carotid arteries, and vertebral arteries are patent. No stenosis, dissection, or aneurysm. Intracranial arteries are patent. No stenosis, dissection, or aneurysm. Patent dural venous sinuses. CT/CTA Head AND Neck W/ Contrast IMPRESSION: No cervical or intracranial arterial pathology. Patent dural venous sinuses. Reading Location: [facility]
--- NOTE | 2025-02-26 05:23 | CT_ITS ---
PROCEDURE: BRAIN/HEAD WITHOUT CONTRAST 02/26/2025 REASON FOR EXAM: RIGHT EAR TINNITUS, DECREASED HEARING TECHNIQUE: BRAIN/HEAD WITHOUT CONTRAST Coronal and Sagittal reconstruction series were provided. One or more dose reduction techniques were used (e.g., Automated exposure control, adjustment of the mA and/or kV according to patient size, use of iterative reconstruction technique. RADIATION DOSE SUMMARY: CTDlvol: 100 mGy DLP: 1709 mGycm COMPARISON: No FINDINGS: No abnormal brain densities. No intracranial hemorrhage. No hydrocephalus or midline shift. No acute scalp or skull pathology. Unremarkable orbits. Clear sinuses, mastoid air cells, middle ear cavities. CT/Brain/Head without Contrast IMPRESSION: No intracranial findings Reading Location: [place] [address]
[2025-02-26 06:45] VITALS: BP 127/76; PULSE 83; RESP 16; TEMP 36.4; O2SAT 98
== END 2025-02-26 06:58 | disposition home or self-care (01) ==
PROVIDERS: Emergency Provider Surgery; PCP Internal Medicine; Visit Provider Surgery
DX: H93.11 Tinnitus, right ear (principal); R68.84 Jaw pain; H91.91 Unspecified hearing loss, right ear; M26.601 Right temporomandibular joint disorder, unspecified
CPT/HCPCS: 70450; 70496; 70498; 80048; 85025; 99284; Q9967; A4216

== ENCOUNTER 2025-05-30 07:45 | Emergency (ER) | payer BC, SELFPAY ==
[2025-05-30 07:45] VITALS: BP 115/79; PULSE 82; RESP 16; TEMP 36.8; O2SAT 99; BMI 24.4
--- NOTE | 2025-05-30 08:14 | EDS_ITS ---
HPI History of Present Illness Chief Complaint: GI Bleed Informant: patient Narrative Narrative: Patient is a 40-year-old male presenting with rectal bleeding, constipation, and lower back pain. - Reports rectal bleeding this morning, describing the toilet bowl as filled with blood after a bowel movement. - Has experienced constipation intermittently for about 2 months, which he believes has worsened since starting trazodone; uses a squatty potty to assist with bowel movements. - Denies rectal pain or difficulty urinating. - Reports lower back pain for the past 5-7 days, which has been increasing in severity, worse with movement. - Describes pain in the perineal area, initially thought to be prostate pain, but clarifies it feels similar to a previously inflamed hernia; pain is intermittent, severe at times, and not consistently associated with bowel movements. Has never had prostate issues in past that he knows of. - Denies abdominal pain, emesis, syncope, or chest pain. - Has experienced episodes of dyspnea, particularly at night, over the past 6 months; currently undergoing evaluation for a sleep study due to this. - Reports unilateral hearing loss about 2 months ago, currently under investigation. [facility] Medical History no medical history Home Medications ?Medication ?Instructions ?Recorded ?Last Taken ?Type cetirizine 10 mg tablet (24Hour 10 mg PO DAILY PRN all ergy symptoms 05/30/25 05/29/25 History Allergy) fluticasone propionate 50 2 spray intranasal BID aller gy 05/30/25 05/29/25 History mcg/actuation nasal symptoms spray,suspension (24 Hour Allergy Relief) hydrocortisone 2.5 % topical cream 1 applic OR QHS 1 w [place] #30 grams 05/30/25 Unknown Rx with perineal applicator (Anusol-HC) magnesium citrate 100 mg tablet 200 mg PO DAILY supple ment 05/30/25 05/29/25 History multivitamin (Daily Multi-Vitamin 1 tab PO DAILY suppl ement 05/30/25 05/29/25 History tablet) trazodone 50 mg tablet 50 mg PO QHS sleep 05/30/25 05/29/25 History Allergy/AdvReac Type Severity Reaction Status Date / Time No Known Allergies Allergy Verified 05/30/25 07:45 Social History Smoking Status: Never smoker ROS ROS ED Constitutional Constitutional ED: Denies chills or fever(s) Eyes Eyes: Denies change in vision or diplopia ENT ENT ED: Denies rhinorrhea or sore throat Cardiovascular Cardiovascular: Denies chest pain or palpitations Respiratory/Chest Respiratory/Chest: Denies cough or dyspnea Gastrointestinal Gastrointestinal: Reports as per HPI, constipation and hematochezia; Denies abdominal pain, diarrhea, hematemesis, melena, nausea or vomiting Genitourinary Genitourinary ED: Denies dysuria or hematuria Musculoskeletal Musculoskeletal: Reports back pain; Denies neck pain Integumentary Denies abscess or rash Neurologic Neurologic: Denies headache(s), paresthesias or weakness Psychiatric Psychiatric: Denies anxiety or suicidal thoughts EXAM Physical Exam Const Vital Signs: 05/30/25 07:45 05/30/25 08:24 05/30/25 10:00 Temperature 98.3 F Temperature Source Oral Pulse Rate 82 78 Pulse Rate [Lying] 71 Pulse Rate [Sitting (for 1 minute prior to obtaining)] 72 Pulse Rate [Standing (for 1 minute prior to obtaining)] 92 Respiratory Rate 16 16 Blood Pressure 115/79 134/76 H Blood Pressure [Lying] 111/69 Blood Pressure [Sitting (for 1 minute prior to obtaining)] 109/78 Blood Pressure [Standing (for 1 minute prior to obtaining)] 113/72 Blood Pressure Mean 91 95 Blood Pressure Mean [Lying] 83 Blood Pressure Mean [Sitting (for 1 minute prior to obtaining)] 88 Blood Pressure Mean [Standing (for 1 minute prior to obtaining)] 85 Pulse Ox 99 98 Oxygen Delivery Method Room Air Room Air Positive well nourished and well developed General Appearance ED: well developed and NAD HEENT Reports moist mucous membranes normocephalic and atraumatic Eyes PERRL and EOMs intact bilaterally Neck full ROM and supple Resp normal respiratory effort and clear to auscultation bilaterally Cardio regular rate, regular rhythm and no murmurs GI non-tender and non-distended Auscultation: normoactive bowel sounds Palpation: soft Narrative: Perineum normal nontender. On rectal exam perianal inspection is normal there is no fissure or active bleeding. On ALYCE there is no tenderness there is no prostate tenderness and not able to discern the size, and there is no residual blood or melanotic, stool is light brown. Back/Spine no CVA tenderness General Back: other FROM Extremity normal to inspection General Extremety ED: Negative for edema, pulses abnormal or tenderness General Extremity: Negative for edema or pulses abnormal Neuro oriented x3, CN's II-XII intact bilaterally and no sensory deficits noted Sensorium / Orientation: awake and alert Motor Exam: strength 5/5 throughout Skin no rashes or lesions noted and no wounds MDM MDM MDM Narrative Medical decision making narrative: Assessment: The patient is a 40-year-old male presenting for acute onset of bright red rectal bleeding following several days of constipation, associated with intermittent lower back and suprapubic pain. Bright red blood per rectum suggests a distal colonic source; external rectal exam shows no external hemorrhoids and no rectal/prostate tenderness. Given normal CBC and absence of concerning abdominal findings, internal hemorrhoid is the most likely etiology. Colitis remains a consideration but is less likely; prostate pathology is unlikely based on exam and normal urinary stream. Plan: - Discharge home in stable condition - Prescribed intrarectal hemorrhoidal cream with applicator for presumed internal hemorrhoid - Advised daily Miralax to maintain soft stools and avoid straining - Provided return precautions for heavy bleeding, syncope, worsening pain - Outpatient follow-up with Dr. Christian Diagnostics: - Labs: CBC normal indicating no significant anemia or leukocytosis Reevaluations: - Discussed lab results and treatment plan with patient; patient understands and agrees to discharge Lab Data Attestation: I reviewed the patient's lab results. Labs: Laboratory Results - last 24 hr 05/30/25 08:22 WBC 7.1 RBC 4.82 Hgb 14.5 Hct 42.9 MCV 89.0 MCH 30.1 MCHC 33.8 RDW Std Deviation 40.2 RDW Coeff of Ember 12.3 Plt Count 260 MPV 9.1 Immature Gran % (Auto) 0.400 Neut % (Auto) 75.6 H Lymph % (Auto) 15.7 L [place] % (Auto) 7.4 Eos % (Auto) 0.6 Baso % (Auto) 0.3 Absolute Neuts (auto) 5.3 Absolute Lymphs (auto) 1.11 Nucleated RBC % 0 Sodium 138 Potassium 3.9 Chloride 104 Carbon Dioxide 24.8 Anion Gap 9 BUN 18 Creatinine 0.70 Estim Creat Clear Calc 150.90 Est GFR (MDRD) Non-Af 120 BUN/Creatinine Ratio 25.1 H Glucose 105 H Calcium 9.1 Total Bilirubin 0.51 AST 17 ALT 20 Alkaline Phosphatase 76 Total Protein 6.6 Albumin 4.3 Globulin 2.3 Albumin/Globulin Ratio 1.9 Discharge Plan Triage Chief Complaint: GI Bleed ED Provider: Jean-Pierre Bautista Dx/Rx/DC Orders Clinical Impression: Acute lower GI bleeding, Constipation Instructions: ED Hemorrhoids, ED Lower GI Bleeding (Stable) Prescriptions: New hydrocortisone [Anusol-HC] 2.5 % cream with perineal applicator 1 applic OR QHS 7 Days Qty: 30 0RF No Action trazodone 50 mg tablet 50 mg PO QHS fluticasone propionate [24 Hour Allergy Relief] 50 mcg/actuation spray,suspension 2 spray intranasal BID Rx Instructions: administer into each nostril cetirizine [24Hour Allergy] 10 mg tablet 10 mg PO DAILY PRN (Reason: allergy symptoms) magnesium citrate 100 mg tablet 200 mg PO DAILY multivitamin [Daily Multi-Vitamin] Tablet 1 tab PO DAILY Primary Care Provider: Chana Christian Referrals: Chana Christian MD [Primary Care Provider, Internal Medicine] Activity Restrictions/Additional Instructions: - Use the prescription anal cream with the applicator once a day: insert just inside your anus and squeeze a small amount of cream to treat the likely internal hemorrhoids. - Take Miralax (polyethylene glycol) every day to soften your stool and help you avoid straining. - Allow yourself plenty of time on the toilet and do not push or strain during bowel movements. - Continue using the cream for about a week, even if you have minor bleeding or discomfort, as it may take that long for the hemorrhoids to improve. - Follow up with Dr. Christian; we will send her a copy of today?s evaluation and treatment plan. Print Language: [place] Disposition Disposition: Home, Self Care
[2025-05-30 08:24] VITALS: BP 109/78; BP 111/69; BP 113/72; PULSE 71; PULSE 72; PULSE 92
[2025-05-30 08:35] LABS: Hematocrit 42.9 % (40-54); Hemoglobin 14.5 g/dL (13.0-16.5); Immature Granulocytes Count 0.030 X10^3/uL (0.0-0.0); Mean Corp Hgb Conc 33.8 g/dL (32-36); Mean Corpuscular Volume 89.0 fL (80-94); Mean Platelet Vol. 9.1 fl (6.2-12.0); NRBC Flagged by Analyzer 0 % (0-5); Platelet Count 260 K/mm3 (150-450); RBC Distribution Width CV 12.3 % (11.6-14.6); RBC Distribution Width SD 40.2 fl (35.1-43.9); Red Blood Count 4.82 M/mm3 (4.6-6.2); White Blood Count 7.1 K/mm3 (4.4-11.0)
[2025-05-30 09:06] LABS: AST(SGOT) 17 U/L (<=37); Alanine Aminotransfer ALT/SGPT 20 U/L (<=46); Albumin, Serum 4.3 g/dL (3.5-5.0); Alkaline Phosphatase 76 U/L (40-129); Anion Gap 9 (5-15); BUN 18 mg/dL (4-19); BUN/Creat Ratio 25.1 RATIO (10-20); Calcium,Total 9.1 mg/dL (7.6-11.0); Carbon Dioxide 24.8 mmol/L (21.0-32.0); Chloride 104 mmol/L (98-108); Estimated Creatinine Clearance 150.90 ml/min (50-250); Globulin 2.3 g/dL (2.2-4.2); Glucose 105 mg/dL (70-99); Potassium 3.9 mmol/L (3.3-5.1)
[2025-05-30 10:00] VITALS: BP 134/76; PULSE 78; RESP 16; O2SAT 98
[2025-05-30 10:55] VITALS: BP 134/78; PULSE 64; RESP 18; TEMP 36.6; O2SAT 99
== END 2025-05-30 10:56 | disposition home or self-care (01) ==
PROVIDERS: Emergency Provider Emergency Medicine; PCP Internal Medicine; Visit Provider Emergency Medicine
DX: K92.2 Gastrointestinal hemorrhage, unspecified (principal); K59.00 Constipation, unspecified; R10.24 Suprapubic pain
CPT/HCPCS: 80053; 85025; 99284; A4216